=== PATIENT | female | born 1945 | race Caucasian/White ===

== ENCOUNTER 2016-09-06 08:11 | Day surgery (SDC) | payer MEDICARE ==
[2016-09-06] MEDS ORDERED: LACTATED RINGERS 1,000 ML IV ONE (09:05)
[2016-09-06] MEDS ORDERED: MIDAZOLAM 2 MG/2 ML VIAL IVP ONE (10:01)
[2016-09-06] MEDS ORDERED: fentaNYL 100 MCG/2 ML VIAL IVP ONE (10:01)
== END 2016-09-06 08:12 | disposition home or self-care (01) ==
PROC: 0DB28ZX Excision of Middle Esophagus, Via Natural or Artificial Opening Endoscopic, Diagnostic (ICD-10-PCS; principal; 2016-09-06 09:30)
DX: K22.70 Barrett's esophagus without dysplasia (principal); Z98.890 Other specified postprocedural states
CPT/HCPCS: 43239; J7120

== ENCOUNTER 2019-11-22 20:04 | Emergency (ER) | payer MEDICARE ==
[2019-11-22 20:22] VITALS: BP 141/77
--- NOTE | 2019-11-22 20:23 | ED Physician Documentation ---
PD HPI FEVER - Stated complaint Stated Complaint: FEVER - Chief complaint Chief Complaint: Fever - History obtained from History obtained from: Patient - History of Present Illness Timing - onset: Enter time (16:00), Today Timing details: Abrupt onset Associated symptoms: Chills, Dry cough (mild). No: Sore throat Similar symptoms before: Has not had sx before Recently seen: Not recently seen - Additional information Additional information: c/o shaking chills this afternoon, subsequently checked her temperature at it was over 101. She called her PMD's office and was advised to go to the ED due to her h/o pneumonia. She denies dyspnea/shortness of breath. She notes mild, nonproductive cough. She did not take anything for the fever and feels better by the time of this evaluation (compared to when her fever was higher). She had nausea with emesis x 2 and one episode of diarrhea earlier when her fever was high, but denies nausea at this time Review of Systems Constitutional: reports: Fever, Chills, Myalgias Throat: denies: Sore throat Cardiac: reports: Reviewed and negative Respiratory: reports: Cough. denies: Dyspnea, Hemoptysis, Wheezing GI: reports: Nausea (resolved), Vomiting (resolved), Diarrhea (resolved) : denies: Dysuria, Frequency Skin: denies: Rash Neurologic: reports: Headache (mild, generalized). 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, Other HEENT: Tonsil/Adenoidectomy - Present Medications Home Medications: Ambulatory Orders Medication Instructions Recorded Confirmed Calcium Carbonate [Calcium] 1,800 mg PO DAILY 02/01/15 04/05/15 Cholecalciferol (Vitamin D3) 3,000 unit PO DAILY 02/01/15 04/05/15 [Vitamin D] Folic Acid/Mv,Fe,Min [Centrum 1 tab PO DAILY 02/01/15 04/05/15 Multivitamin Tab Chew] Tumeric DAILY 09/06/16 - Allergies Allergies/Adverse Reactions: Allergies Allergy/AdvReac Type Severity Reaction Status Date / Time codeine AdvReac Nausea Verified 09/06/16 09:06 PD ED PE NORMAL - Vitals Vital signs reviewed: Yes - General General: Alert and oriented X 3, No acute distress, Well developed/nourished - HEENT HEENT: Moist mucous membranes - Neck Neck: Supple, no meningeal sign - Cardiac Cardiac: RRR, No murmur - Respiratory Respiratory: No respiratory distress, Clear bilaterally - Abdomen Abdomen: Soft, Non tender - Extremities Extremities: No edema Results - Vitals Vitals: Vital Signs - 24 hr 11/22/19 11/22/19 20:20 22:15 Temperature 38 C H Heart Rate 118 H 95 Respiratory 18 Rate Blood Pressure 141/77 H O2 Saturation 94 95 Oxygen O2 Source Room air - Labs Labs: Laboratory Tests 11/22/19 21:15 Influenza A (Rapid) Negative Influenza B (Rapid) Negative - Rads (name of study) chest xray Radiology: Prelim report reviewed, See rad report PD MEDICAL DECISION MAKING - ED course Complexity details: reviewed results, re-evaluated patient, considered differential, d/w patient Departure - Departure Disposition: 01 Home, Self Care Clinical Impression: Febrile illness Condition: Good Instructions: ED Fever Unconf Cause, ED Fever Control Discharge Date/Time: 11/22/19 22:15
[2019-11-22] MEDS ORDERED: ACETAMINOPHEN 325 MG TABLET PO STA (20:51)
--- NOTE | 2019-11-22 21:44 | XRAY Report ---
Reason: chest pain Procedure Date: 11/22/2019 Accession Number: [id number] / [id number] Procedure: XR - Chest 1 View X-Ray CPT Code: 46386 Final Report FULL RESULT: EXAM: CHEST RADIOGRAPHY EXAM DATE: 11/22/2019 09:33 PM. CLINICAL HISTORY: Chills, shaking, and fever for 2 days with nausea and vomiting. COMPARISON: 10/02/2011. TECHNIQUE: 1 view. FINDINGS: Lungs/Pleura: No focal opacities evident. No pleural effusion. No pneumothorax. Mediastinum: Within exam limitations, the cardiomediastinal contour is normal. Other: None. IMPRESSION: Normal single view chest. RADIA
== END 2019-11-22 22:15 | disposition home or self-care (01) ==
LOC: ED 20:04
DX: R50.9 Fever, unspecified (principal)
CPT/HCPCS: 71045; 81599; 87275; 87276; 99284; A9270

== ENCOUNTER 2022-10-06 06:22 | Day surgery (SDC) | payer MEDICARE ==
[2022-10-06] MEDS ORDERED: LACTATED RINGERS 1,000 ML IV ONE (06:36)
[2022-10-06] MEDS ORDERED: LIDOCAINE MPF 2%-EPI 1:200000 20 ML VIAL ONE (07:10)
[2022-10-06] MEDS ORDERED: BUPIVACAINE 0.25% PF 30 ML VIAL ONE (07:10)
--- NOTE | 2022-10-06 07:16 | ANESTHESIA ---
Pre-Anesthesia VS, & Labs - Diagnosis small cell lung cancer - Procedure port placement Vital Signs: Temp Pulse Resp BP Pulse Ox O2 Flow Rate 36.7 C 99 18 167/79 H 99 2 10/06/22 06:36 10/06/22 06:36 10/06/22 06:36 10/06/22 06:36 10/06/22 06:36 10/06/22 06:36 Height: 5 ft 1 in Weight (kg): 63.6 kg Body Mass Index: 26.4 BMI Classification: Overweight - NPO >8 hours - Is Patient ?: No Home Medications and Allergies Home Medications: Ambulatory Orders Atorvastatin Calcium 40 mg PO DAILY 10/02/22 Omeprazole 20 mg PO DAILY 10/02/22 buPROPion [Wellbutrin Xl] 150 mg PO DAILY 10/02/22 Calcium Carbonate [Calcium] 1,800 mg PO DAILY 02/01/15 Cholecalciferol (Vitamin D3) [Vitamin D] 3,000 unit PO DAILY 02/01/15 Folic Acid/Mv,Fe,Min [Centrum Multivitamin Tab Chew] 1 tab PO DAILY 02/01/15 Atorvastatin Calcium 40 mg PO DAILY 10/02/22 Omeprazole 20 mg PO DAILY 10/02/22 buPROPion [Wellbutrin Xl] 150 mg PO DAILY 10/02/22 Allergies/Adverse Reactions: Allergies Allergy/AdvReac Type Severity Reaction Status Date / Time codeine AdvReac Nausea Verified 10/06/22 07:07 Anes History & Medical History - Anesthetic History Anesthesia Complications: reports: No previous complications - Medical History Cardiovascular: reports: High cholesterol Pulmonary: reports: COPD, Other Gastrointestinal: reports: GERD, Hiatal hernia, Other Urinary: reports: None Musculoskeletal: reports: Osteoporosis Endocrine/Autoimmune: reports: None Skin: reports: None Smoking Status: Former smoker History of Cancer?: Yes - Surgical History General: reports: Hiatal hernia repair, Colonoscopy, EGD Eyes Ears Nose Throat (EENT): reports: Tonsil/Adenoidectomy Gynecologic: reports: Hysterectomy Exam General: Alert, Oriented x3 Dental: WNL Mouth Opening: Greater than 4 Fingerbreadths Neck Mobility: Normal Thyromental Distance: 4-6 cm Respiratory: Lungs clear Cardiovascular: Regular rate Plan Anesthesia Type: Total IV Consent for Procedure(s) Verified and Reviewed: Yes Code Status: Attempt Resuscitation ASA classification: 3-Severe systemic disease Is this case an emergency?: No
[2022-10-06] MEDS ORDERED: fentaNYL 100 MCG/2 ML VIAL ONE (07:17)
--- NOTE | 2022-10-06 07:34 | HISTORY & PHYSICAL EXAMINATION ---
Chief Complaint - Chief Complaint Chief Complaint: lung cancer History of Present Illness - History Obtained From Records Reviewed: yes History obtained from: pt Exam Limitations: none - History of Present Illness HPI Comment/Other: extensive left lung cancer and need for chemotherapy and port History - Past Medical History Cardiovascular: reports: High cholesterol Respiratory: reports: COPD, Other Endocrine/Autoimmune: reports: None GI: reports: GERD, Hiatal hernia, Other : reports: None HEENT: reports: Chronic hearing loss Psych: reports: Anxiety, Claustrophobia Musculoskeletal: reports: Osteoporosis Derm: reports: None MRSA Hx?: No - Past Surgical History General: reports: Hiatal hernia repair, Colonoscopy, 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 HEENT: reports: Tonsil/Adenoidectomy Meds/Allgy - Home Medications Home Medications: Ambulatory Orders Medication Instructions Recorded Confirmed Calcium Carbonate [Calcium] 1,800 mg PO DAILY 02/01/15 10/06/22 Cholecalciferol (Vitamin D3) 3,000 unit PO DAILY 02/01/15 10/06/22 [Vitamin D] Folic Acid/Mv,Fe,Min [Centrum 1 tab PO DAILY 02/01/15 10/06/22 Multivitamin Tab Chew] Atorvastatin Calcium 40 mg PO DAILY 10/02/22 10/06/22 Omeprazole 20 mg PO DAILY 10/02/22 10/06/22 buPROPion [Wellbutrin Xl] 150 mg PO DAILY 10/02/22 10/06/22 - Allergies Allergies/Adverse Reactions: Allergies Allergy/AdvReac Type Severity Reaction Status Date / Time codeine AdvReac Nausea Verified 10/06/22 07:07 Review of Systems - Other Findings Other Findings: 10 pt ros as above otherwise unremarkable Exam - Vital Signs Reviewed Vital Signs: Yes Vital Signs: Vital Signs x48h Temp Pulse Resp BP Pulse Ox O2 Flow Rate 10/06/22 06:36 36.7 C 99 18 167/79 H 99 2 - Physical Exam General Appearance: positive: No acute distress, Alert Eyes Bilateral: positive: PERRL, EOMI ENT: positive: No signs of dehydration, Other Neck: positive: Trachea midline, Other (left supraclavicular and cervical adenopathy present. small hard fixed) Respiratory: positive: No respiratory distress, Other (no breath sound on the left. clear on the right) Abdomen: positive: Non-tender, No distention Neurologic/Psychiatric: positive: Oriented x3 Conclusion/Plan - Problem List (1) Lung cancer Conclusion/Plan: plan chemotherapy port. parq held and consent obtained
[2022-10-06] MEDS ORDERED: ONDANSETRON 4 MG/2 ML VIAL ONE (08:49)
[2022-10-06] MEDS ORDERED: PROPOFOL 500 MG/50 ML 500 MG/50 ML VIAL ONE (08:53)
[2022-10-06] MEDS ORDERED: ceFAZolin 1 GM VIAL ONE (08:57)
[2022-10-06] MEDS ORDERED: BUPIVACAINE 0.25% PF 30 ML VIAL SUBQ ONE ×2 (09:09)
[2022-10-06] MEDS ORDERED: LIDOCAINE MPF 2%-EPI 1:200000 20 ML VIAL SUBQ ONE ×2 (09:10)
--- NOTE | 2022-10-06 09:32 | XRAY Report ---
PROCEDURE: OR Port-A-Cath INDICATIONS: port placement CONTRAST: None FLUORO TIME: 5 seconds TECHNIQUE: Real time fluoroscopy was performed of the thorax. COMPARISON: None. FINDINGS: Single intraoperative fluoroscopic image from port catheter placement. IMPRESSION: Intraprocedural fluoroscopy was provided for guidance and anatomic localization. Please see the proc edure report for further details. Reviewed by: Misbah Pat MD on 10/06/2022 9:31 AM PST Approved by: Misbah Pat MD on 10/06/2022 9:31 AM PST Station ID: [id number]
[2022-10-06] MEDS ORDERED: LACTATED RINGERS 75 ML IV ONE (09:40)
[2022-10-06] MEDS ORDERED: HYDROcod/ACETAM 5/325 MG TABLET PO PRN (09:42)
--- NOTE | 2022-10-06 09:47 | OPERATIVE REPORT ---
Operative Report - General Procedure Date: 10/06/22 Planned Procedure: left subclavian power port placement Pre-Op Diagnosis: left lung cancer Procedure Performed: left subclavian power port placement fluoroscopic guidance Post Op Diagnosis: left lung cancer - Procedure Note Primary Surgeon: lilliana thurman Anesthesia Technique: Local, MAC Pathology: none Estimated Blood Loss (mL): 1 Indications: need for chemotherapy Findings: tip at junction of svc and atrium good flush and flow Complications: none - Other Other Information/Narrative: The patient was properly identified brought to the operating room and placed in supine position. Monitored anesthesia care was given as well as IV sedation. A towel roll was placed under the upper back. The patient was prepped and draped in a sterile fashion and given preoperative antibiotics. Local anesthetic was given. The left subclavian vein was easily accessed first pass with a needle. Guide wire placed and position confirmed. A subcutaneous pocket on the left upper chest was created measuring approximately 2-1/2 cm. Portacatheter tubing was then placed subcutaneous up to the venous access point. The portacatheter tubing was then easily placed with the use of a dilator peel-away sheath. The tubing was aspirated and flushed with saline. Under fluoroscopic guidance the tubing was pulled back to the junction of the atrium and the superior vena cava. The portacatheter aspirated and flushed easily assuring good position. The portacatheter was then cut to size and further assembled. The port was secured to subcutaneous tissue with 2 interrupted 4-0 Prolene sutures. The port again was aspirated and flushed now with heparin. Buried interrupted subdermal 3-0 Vicryl sutures were then placed. Skin was closed with buried interrupted and running 4-0 Monocryl subcuticular suture. Dressing was applied. The patient tolerated the procedure well was awakened and brought to recovery in good condition.
[2022-10-06 09:56] VITALS: BP 140/74
--- NOTE | 2022-10-06 10:20 | ANESTHESIA POST OP EVALUATION ---
Anesthesia Post Eval - Post Anesthesia Eval Vitals: Last Vital Signs Temp 36.3 C L 10/06/22 09:55 Pulse 88 10/06/22 09:55 Resp 20 10/06/22 09:55 BP 140/74 H 10/06/22 09:55 Pulse Ox 99 10/06/22 09:55 O2 Flow Rate 2 10/06/22 06:36 CV Function Including HR & BP: Stable Pain Control: Satisfactory Nausea & Vomiting: Negative Mental Status: Baseline Respiratory Status: Airway Patent Hydration Status: Satisfactory Anesthesia Complications: None
== END 2022-10-06 06:23 | disposition home or self-care (01) ==
LOC: SDS 06:22
PROVIDERS: ATTEND Surgery
DX: C34.90 Malignant neoplasm of unspecified part of unspecified bronchus or lung (principal); J44.9 Chronic obstructive pulmonary disease, unspecified; Z87.891 Personal history of nicotine dependence
CPT/HCPCS: 36561; C1788; J7120

== ENCOUNTER 2023-05-20 18:46 | Outpatient (CLI) | payer MEDICARE | END 2023-05-20 18:47 | disposition critical access hospital (66) | LOC: EMS 18:46 | DX: U07.1 COVID-19 (principal); R06.02 Shortness of breath | CPT/HCPCS: A0425; A0427 ==

== ENCOUNTER 2023-05-20 19:20 | Inpatient (IN) | payer MEDICARE ==
[2023-05-20 20:14] LABS: BASOPHILS % (AUTO) 0.3 %; EOSINOPHILS # (AUTO) 0.1 10^3/uL (0.0-0.7); HCT - HEMATOCRIT 20.2 % (37.0-47.0); LYMPHOCYTES # (AUTO) 0.2 10^3/uL (1.5-3.5); MEAN CORPUSCULAR HEMOGLOBIN 30.7 pg (27.0-31.0); MEAN CORPUSCULAR HGB CONC 31.2 g/dL (32.0-36.0); MEAN CORPUSCULAR VOLUME 98.5 fL (81.0-99.0); MEAN PLATELET VOLUME 8.1 fL (7.9-10.8); MONOCYTES # (AUTO) 0.3 10^3/uL (0.0-1.0); MONOCYTES % (AUTO) 9.6 %; NEUTROPHILS # (AUTO) 2.4 10^3/uL (1.5-6.6); NEUTROPHILS % (AUTO) 79.8 %; PLT - PLATELET COUNT 109 10^3/uL (130-450); RED BLOOD COUNT 2.05 10^6/uL (4.20-5.40)
[2023-05-20 20:17] LABS: HGB - HEMOGLOBIN 6.3 g/dL (12.0-16.0)
[2023-05-20 20:31] LABS: SLIDE REVIEW? Indicated
[2023-05-20 20:32] LABS: PLATELET ESTIMATE, MANUAL DECREASED (<130,000) (NORMAL); PLATELET MORPHOLOGY NORMAL APPEARANCE (NORMAL); RBC MORPHOLOGY (MULTIPLE) NORMAL APPEARANCE (NORMAL)
--- NOTE | 2023-05-20 20:41 | XRAY Report ---
PROCEDURE: Chest 1 View X-Ray INDICATIONS: SOA/COVID + TECHNIQUE: One view of the chest was acquired. COMPARISON: CT chest dated 04/24/2023 and chest radiograph dated 11/22/2019 FINDINGS: Surgical changes and devices: Left port device is in place with the distal tip projecting near the c avoatrial junction. Lungs and pleura: Diffuse interstitial prominence. Patchy ill-defined opacities of the left mid and upper lung zone. No focal consolidation. There is an right medial lung base density with smooth, curv ilinear margin which may represent contours of the Bochdalek hernia seen on comparison CT. Focal mass /consolidation not excluded. Mediastinum: Cardiomediastinal contours are stable. Bones and chest wall: No suspicious bony lesions. Overlying soft tissues appear unremarkable. IMPRESSION: Diffuse interstitial prominence and patchy airspace opacities of the left mid and upper lung zones. F indings likely represent an infectious or inflammatory process given reported history of Covid infect ion. No focal consolidation. Recommend follow-up chest radiograph 4-6 weeks after treatment to docume nt resolution of findings and/or return to baseline exam. Right medial lung base opacity with smooth curvilinear margin likely representing summation artifact of Bochdalek hernia seen on comparison CT. Attention on follow-up imaging recommended. Reviewed by: Miki Gilmore MD on 05/20/2023 8:40 PM PDT Approved by: Miki Gilmore MD on 05/20/2023 8:40 PM PDT Station ID: [id number]
[2023-05-20 21:10] LABS: BASOPHILS % (AUTO) 0.6 %; EOSINOPHILS # (AUTO) 0.1 10^3/uL (0.0-0.7); EOSINOPHILS % (AUTO) 1.3 %; HCT - HEMATOCRIT 34.6 % (37.0-47.0); HGB - HEMOGLOBIN 11.5 g/dL (12.0-16.0); LYMPHOCYTES # (AUTO) 0.4 10^3/uL (1.5-3.5); LYMPHOCYTES % (AUTO) 7.1 %; MEAN CORPUSCULAR HEMOGLOBIN 31.1 pg (27.0-31.0); MEAN CORPUSCULAR HGB CONC 33.2 g/dL (32.0-36.0); MEAN CORPUSCULAR VOLUME 93.5 fL (81.0-99.0); MEAN PLATELET VOLUME 8.1 fL (7.9-10.8); MONOCYTES # (AUTO) 0.5 10^3/uL (0.0-1.0); MONOCYTES % (AUTO) 8.9 %; NEUTROPHILS # (AUTO) 4.4 10^3/uL (1.5-6.6); NEUTROPHILS % (AUTO) 81.9 %; PLT - PLATELET COUNT 199 10^3/uL (130-450); RED CELL DISTRIBUTION WIDTH 12.7 % (12.0-15.0); WHITE BLOOD COUNT 5.4 x10^3/uL (4.8-10.8)
[2023-05-20 21:19] LABS: ALBUMIN 3.2 g/dL (3.2-5.5); ALBUMIN/GLOBULIN RATIO 1.1 (1.0-2.2); BILIRUBIN,TOTAL 0.6 mg/dL (0.2-1.0); CALCIUM 8.8 mg/dL (8.5-10.3); CREATININE 0.9 mg/dL (0.6-1.3); POTASSIUM 3.2 mmol/L (3.5-4.5); TOTAL PROTEIN 6.2 g/dL (6.4-8.9)
[2023-05-20] MEDS ORDERED: SODIUM CHLORIDE 0.9% 500 ML IV STA (21:26)
[2023-05-20] MEDS ORDERED: POTASSIUM BICARB 25 MEQ TABLET PO STA (21:26)
[2023-05-20] MEDS ORDERED: AZITHROMYCIN INJ 500 MG in SODIUM CHLORIDE 0.9% 250 ML IV STA (22:08)
--- NOTE | 2023-05-20 22:24 | ED Physician Documentation ---
PD HPI DYSPNEA - Stated complaint Stated Complaint: SOA/C+ - Chief complaint Chief Complaint: Resp - History obtained from History obtained from: Patient - Additional information Additional information: Patient is a 78-year-old female with a history of small cell lung cancer presenting for evaluation of worsening shortness of air for the past few hours. She used a home inhaler but this did not help her. She recently has completed a course of prednisone. She was diagnosed with COVID 19 3 days ago and is on Paxlovid. She reports that her shortness of air has been ongoing for the past 5 weeks and she has seen her oncologist, Dr. Andres. He did a CT scan to see if her cancer was recurrent and found findings ( toxicity. Significant groundglass opacities and subcentimeter pulmonary nodularity) that were concerning for immuno therapy toxicity With plans to hold maintenance atezolizumab. For the treatment of her immunotherapy related pneumonitis he started her on a course of prednisone. She completed 2 weeks of prednisone on the .She reports that the prednisone made her feel manic and did not like how she felt with it. This evening she also noted that her oxygen saturations were low in the 80s. When EMS arrived they noted that her O2 sats were 88% on room air and administered a DuoNeb treatment. Patient reports feeling better at this time. Review of Systems Constitutional: denies: Fever Cardiac: denies: Chest pain / pressure Respiratory: reports: Dyspnea, Cough GI: denies: Abdominal Pain, Vomiting Neurologic: reports: Generalized weakness. 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 HEENT: Tonsil/Adenoidectomy - Present Medications Home Medications: Ambulatory Orders Medication Instructions Recorded Confirmed Calcium Carbonate [Calcium] 1,800 mg PO DAILY 02/01/15 05/20/23 Cholecalciferol (Vitamin D3) 3,000 unit PO DAILY 02/01/15 05/20/23 [Vitamin D] Folic Acid/Mv,Fe,Min [Centrum 1 tab PO DAILY 02/01/15 05/20/23 Multivitamin Tab Chew] Atorvastatin Calcium 40 mg PO DAILY 10/02/22 05/20/23 Omeprazole 20 mg PO DAILY 10/02/22 05/20/23 HYDROcod/ACETAM 5/325 [[place] 5/325] 1 each PO Q6H PRN #10 tablet 10/06/22 05/20/23 Escitalopram [Lexapro] 10 mg PO DAILY 04/25/23 05/20/23 Zolpidem Tartrate [Edluar] 5 mg SL UD 04/25/23 05/20/23 - Allergies Allergies/Adverse Reactions: Allergies Allergy/AdvReac Type Severity Reaction Status Date / Time codeine AdvReac Nausea Verified 05/20/23 19:34 - Social History Does the pt smoke?: No Smoking Status: Never smoker Does the pt drink ETOH?: No Does the pt have substance abuse?: No - Immunizations Immunizations are current?: Yes - POLST Patient has POLST: No PD ED PE NORMAL - General General: Alert and oriented X 3, No acute distress, Well developed/nourished - HEENT HEENT: Atraumatic, Moist mucous membranes - Neck Neck: Supple, no meningeal sign - Cardiac Cardiac: RRR, No murmur, Other (Port to the left chest, no overlying erythema or swelling) - Respiratory Respiratory: No respiratory distress, Other (Coarse breath sounds, no wheezes) - Abdomen Abdomen: Soft, Non tender, Non distended - Rectal Rectal: Other (Chaperoned by Princess, brown-colored stool, no tenderness) - Derm Derm: Warm and dry - Extremities Extremities: No calf tenderness / cord - Neuro Neuro: Alert and oriented X 3, No motor deficit, Normal speech Results - Vitals Vitals: Vital Signs - 24 hr 05/20/23 05/20/23 05/20/23 19:20 19:43 20:10 Temperature 36.7 C Heart Rate 103 H 104 H 91 Respiratory 23 26 H 19 Rate Blood Pressure 152/62 H 146/73 H 154/67 H O2 Saturation 89 L 98 97 If not protocol 4 2 : Oxygen Flow, liters/minute 05/20/23 05/20/23 05/20/23 20:51 22:08 22:23 Temperature Heart Rate 90 85 87 Respiratory 26 H 23 18 Rate Blood Pressure 145/57 H 125/62 125/63 O2 Saturation 94 91 L 87 L If not protocol 2 : Oxygen Flow, liters/minute 05/20/23 05/20/23 22:27 22:40 Temperature 36.6 C Heart Rate 84 91 Respiratory 23 22 Rate Blood Pressure 143/81 H O2 Saturation 99 94 If not protocol 2 2 : Oxygen Flow, liters/minute Oxygen O2 Source Nasal cannula Oxygen Flow Rate 4 - EKG (time done) 1942 EKG releavant findings:: EKG personally interpreted by author of this note. Relevant findings are: Rate 93, normal sinus rhythm, no STEMI - Labs Labs: Microbiology 05/20/23 20:41 Occult Blood - Final Stool Laboratory Tests 05/20/23 05/20/23 05/20/23 20:01 20:01 20:01 WBC 3.0 L RBC 2.05 L Hgb 6.3 L* Hct 20.2 L MCV 98.5 MCH 30.7 MCHC 31.2 L RDW 13.0 Plt Count 109 L MPV 8.1 Neut # (Auto) 2.4 Lymph # (Auto) 0.2 L Pepin # (Auto) 0.3 Eos # (Auto) 0.1 Baso # (Auto) 0.0 Absolute Nucleated RBC 0.00 Nucleated RBC % 0.0 Manual Slide Review Indicated Platelet Estimate DECREASED (<130,000) Platelet Morphology NORMAL APPEARANCE RBC Morph Micro Appear NORMAL APPEARANCE Sodium Cancelled Potassium Cancelled Chloride Cancelled Carbon Dioxide Cancelled Anion Gap Cancelled BUN Cancelled Creatinine Cancelled Estimated GFR (MDRD) Cancelled Glucose Cancelled Lactic Acid < 0.2 L Calcium Cancelled Total Bilirubin Cancelled AST Cancelled ALT Cancelled Alkaline Phosphatase Cancelled B-Natriuretic Peptide Total Protein Cancelled Albumin Cancelled Globulin Cancelled Albumin/Globulin Ratio Cancelled Blood Type Antibody Screen Crossmatch IS Only 05/20/23 05/20/23 05/20/23 20:01 20:29 21:01 WBC RBC Hgb Hct MCV MCH MCHC RDW Plt Count MPV Neut # (Auto) Lymph # (Auto) Pepin # (Auto) Eos # (Auto) Baso # (Auto) Absolute Nucleated RBC Nucleated RBC % Manual Slide Review Platelet Estimate Platelet Morphology RBC Morph Micro Appear Sodium 126 L Potassium 3.2 L Chloride 90 L Carbon Dioxide 26 Anion Gap 10.0 BUN 16 Creatinine 0.9 Estimated GFR (MDRD) 60 L Glucose 106 H Lactic Acid Calcium 8.8 Total Bilirubin 0.6 AST 25 ALT 23 Alkaline Phosphatase 56 B-Natriuretic Peptide 9 Total Protein 6.2 L Albumin 3.2 Globulin 3.0 Albumin/Globulin Ratio 1.1 Blood Type A POSITIVE Antibody Screen NEGATIVE Crossmatch IS Only See Detail 05/20/23 21:01 WBC 5.4 RBC 3.70 L Hgb 11.5 L Hct 34.6 L MCV 93.5 MCH 31.1 H MCHC 33.2 RDW 12.7 Plt Count 199 MPV 8.1 Neut # (Auto) 4.4 Lymph # (Auto) 0.4 L Pepin # (Auto) 0.5 Eos # (Auto) 0.1 Baso # (Auto) 0.0 Absolute Nucleated RBC 0.00 Nucleated RBC % 0.0 Manual Slide Review Platelet Estimate Platelet Morphology RBC Morph Micro Appear Sodium Potassium Chloride Carbon Dioxide Anion Gap BUN Creatinine Estimated GFR (MDRD) Glucose Lactic Acid Calcium Total Bilirubin AST ALT Alkaline Phosphatase B-Natriuretic Peptide Total Protein Albumin Globulin Albumin/Globulin Ratio Blood Type Antibody Screen Crossmatch IS Only PD Medical Decision Making - ED course Complexity details: reviewed results, re-evaluated patient, d/w patient ED course: Patient is a 78-year-old female presenting for evaluation of worsening shortness of air. Patient is requiring supplemental oxygen. Feeling better after neb treatment from EMS. Course breath sounds on exam. Afebrile. Conversant. EKG is nonischemic.No symptoms to suggest ACS.CBC, chemistries, lactic, blood cultures and chest x-ray were obtained and reviewed. She has recently tested positive for COVID-19 and has started a course of Paxlovid. Initial labs showed a hemoglobin of 6.5 which was concerning as prior labs from about a month ago showed a hemoglobin of 11. I did perform a rectal exam which was guaiac negative and normal colored stool and she denies hematochezia or melena. Lab then notified us that her chemistries seem to be off. Therefore we repeated both the CBC and chemistries. Repeat hemoglobin appears to be accurate and is not significantly changed from prior labs. She does have a new hyponatremia of 126. She reports drinking up a lot of water today to stay hydrated and has not been eating as much. Chest x-ray shows opacities. Unclear whether this is related to COVID or bacterial infection. Given that she may be immunocompromised from cancer treatments I did start her on IV antibiotics. Patient is unable to be weaned from her oxygen. Therefore she does require admission. Discussed with admitting hospitalist. Departure - Departure Disposition: 66 [facility] DC/Xfer Clinical Impression: COVID-19, Acute hypoxic respiratory failure, CAP (community acquired pneumonia), Hyponatremia Condition: Fair
[2023-05-20] MEDS ORDERED: cefTRIAXone 1 GM in SODIUM CHLORIDE 0.9% MINIBAG 100 ML IV STA (22:45)
--- NOTE | 2023-05-20 23:10 | HISTORY & PHYSICAL EXAMINATION ---
Chief Complaint - Chief Complaint Chief Complaint: Shortness of breath History of Present Illness - Admitted From Admitted From:: ER - History Obtained From Records Reviewed: Yes History obtained from: Patient, staff, chart Exam Limitations: Virtual Exam - History of Present Illness HPI Comment/Other: H&P was conducted via video remotely, using Access Cart. [place] in [place] Physician [place] in [place]. No one is at bedside. 78 yo F with PMH of COPD, extensive SCLC dx'd 08/2022 with maintenance Atezolizumab since 02/14/2023-On hold since 04/25/2023 due to pneumonitis, HLD, GERD, Anxiety presented to the ER for c/o 1 day h/o increased Shortness of breath. Pt noticed increased SOB about 6 weeks ago, went to see her Oncologist, CT chest was done, which showed Pneumonitis; pt was put on a course of Prednisone (40 mg PO qd x 7 days, then 20 mg PO QD x 7 days). Pt says taking the steroids made her feel manic/happy. Her symptoms improved. While she was on steroids, she went on a cruise to [place] out of [place]. On the cruise, after her last day of steroids, she had a bad day with fatigue. She called her Palliative care RN and was prescribed a tapering dose of steroids and she felt better. Then, about 4 days into the cruise/8 days ago, she began to have increased Shortness of breath with activity, cough, no sputum, +chest congestion, fatigue, nausea, subjective F/C. Her roommate also felt ill and went to see a physician and tested + for both Influenza and COVID-19. Pt then got tested 3 days ago and her COVID-19 was +; she was negative for Influenza. She was started on Paxlovid 3 days ago. Today, her symptoms worsened. She had worse Shortness of breath. She checked her SpO2 and it was in the 80s, which did not improved with home inhaler, so she called EMS. Pt denies abdo pain, dysuria. Pt ate well on the cruise, but has not eaten well x 2 days. Temp at home today: 100.8F. +vomiting at home a couple of times: non-bloody. EMS reported SpO2 88% and placed pt on O2 and gave her Duonebs. In the ER, BP 152/62, HR 103, SpO2 87% RA-97% on 2L NC O2 Note: 1st set of labs were error results Per 2nd set of labs: Hgb 11.5, Na 126, K 3.2 CXR: Diffuse patchy airspace opacities L mid and upper lung, RML opacity EKG: NSR at 93 bpm, no STTw changes Pt was given Rocephin/Azithromycin, Duonebs, O2, and KCl 25 meQ in the ER. History - Past Medical History Cardiovascular: reports: High cholesterol Respiratory: reports: COPD, Other Endocrine/Autoimmune: reports: None GI: reports: GERD, Hiatal hernia, Other : reports: None HEENT: reports: Chronic hearing loss Psych: reports: Anxiety, Claustrophobia Musculoskeletal: reports: Osteoporosis Derm: reports: None MRSA Hx?: No Other Past Medical History: Lung CA: Covid19+ recent - Past Surgical History General: reports: Hiatal hernia repair, Colonoscopy, EGD /GLUER AND SLICER HAND: reports: Hysterectomy HEENT: reports: Tonsil/Adenoidectomy - POLST Patient has POLST: No Meds/Allgy - Home Medications Home Medications: Ambulatory Orders Medication Instructions Recorded Confirmed Calcium Carbonate [Calcium] 1,800 mg PO DAILY 02/01/15 05/20/23 Cholecalciferol (Vitamin D3) 3,000 unit PO DAILY 02/01/15 05/20/23 [Vitamin D] Folic Acid/Mv,Fe,Min [Centrum 1 tab PO DAILY 02/01/15 05/20/23 Multivitamin Tab Chew] Atorvastatin Calcium 40 mg PO DAILY 10/02/22 05/20/23 Omeprazole 20 mg PO DAILY 10/02/22 05/20/23 HYDROcod/ACETAM 5/325 [Hendley 5/325] 1 each PO Q6H PRN #10 tablet 10/06/22 05/20/23 Escitalopram [Lexapro] 10 mg PO DAILY 04/25/23 05/20/23 Zolpidem Tartrate [Edluar] 5 mg SL UD 04/25/23 05/20/23 - Allergies Allergies/Adverse Reactions: Allergies Allergy/AdvReac Type Severity Reaction Status Date / Time codeine AdvReac Nausea Verified 05/20/23 19:34 Review of Systems - All Other Systems All Other Systems: reports: Reviewed and negative Exam - Vital Signs Reviewed Vital Signs: Yes Vital Signs: Vital Signs x48h Temp Pulse Resp BP Pulse Ox O2 Flow Rate 05/20/23 22:40 36.6 C 91 22 143/81 H 94 2 05/20/23 22:27 84 23 99 2 05/20/23 22:23 87 18 125/63 87 L 05/20/23 22:08 85 23 125/62 91 L 05/20/23 20:51 90 26 H 145/57 H 94 2 05/20/23 20:10 91 19 154/67 H 97 2 05/20/23 19:43 104 H 26 H 146/73 H 98 4 05/20/23 19:20 36.7 C 103 H 23 152/62 H 89 L - Physical Exam General Appearance: positive: No acute distress ENT: positive: Dry mucous membranes Neck: positive: Other Respiratory: positive: Other (Access cart stethoscope not working; per ER Provider: Diffuse coarse BS B/L, Port to the left chest, no overlying erythema or swelling) Cardiovascular: positive: Other (Access cart stethoscope not working; per ER Provider: RR, Tachy, no murmurs) Abdomen: positive: Other (per ER Provider: non-distended, NT, Soft) Extremities: positive: Full ROM Neurologic/Psychiatric: positive: Oriented x3, Other (Normal speech) Conclusion/Plan - Problem List (1) Pneumonia Conclusion/Plan: Pneumonia COVID-19+ Acute Respiratory Failure with Hypoxia COPD Shortness of breath Fever -SpO2 87% RA-97% on 2L NC O2 -CXR: Diffuse patchy airspace opacities L mid and upper lung, RML opacity -Pt was given Rocephin/Azithromycin, Duonebs, O2 in the ER. -continue O2 support -continue Rocephin/Azithromycin -check Procalcitonin; if neg, can stop antibiotics -add Dexamethasone 6 mg IV x 10 days (obtained consent from pt) -continue home medications: Paxlovid x 2 more days -consider Remdesivir, if available -Duonebs PRN Nausea/Vomiting Decreased PO intake Hyponatremia Hypokalemia -Na 126, K 3.2 -Pt was given KCl 25 meQ in the ER. -supplement K PRN -IVF -clear liquid diet; advance as tolerated -anti-emetics PRN Extensive SCLC dx'd 08/2022 with maintenance Atezolizumab since 02/14/2023-On hold since 04/25/2023 due to pneumonitis Anemia -Note: 1st set of labs were error results -Per 2nd set of labs: Hgb 11.5 -mgmt per Oncology, outpatient HLD -continue home medications: statin GERD -continue home medications: PPI Anxiety -continue home medications: Lexapro VTE Prophylaxis: Lovenox Code Status: D/W pt; she is DNR/DNI ~Alycia Brooks MD Hospitalist - Lab Results Lab results reviewed: Yes Fish Bones: 05/20/23 21:01 05/20/23 21:01
[2023-05-20] MEDS ORDERED: cefTRIAXone 1 GM VIAL ONE (23:23)
[2023-05-20] MEDS ORDERED: ACETAMINOPHEN 325 MG TABLET PO PRN (23:47)
[2023-05-20] MEDS ORDERED: ONDANSETRON ODT 4 MG TABLET TL PRN (23:47)
[2023-05-20] MEDS ORDERED: IPRATROPIUM/ALBUTEROL 3 ML NEB INH PRN (23:47)
[2023-05-20] MEDS ORDERED: SODIUM CHLORIDE FLUSH 0.9% 10 ML SYRINGE IVP PRN (23:47)
[2023-05-20] MEDS ORDERED: ONDANSETRON 4 MG/2 ML VIAL IVP PRN (23:47)
[2023-05-20] MEDS ORDERED: HYDROcod/ACETAM 5/325 MG TABLET PO PRN (23:53)
[2023-05-21] MEDS ORDERED: NIRMATRELVIR/RITONAVIR PREPACK PO STA (00:18)
[2023-05-21] MEDS: SODIUM CHLORIDE 0.9% 1,000 ML IV SCH ×2 (00:21→10:23)
[2023-05-21] MEDS: SODIUM CHLORIDE FLUSH 0.9% 10 ML SYRINGE IVP SCH ×4 (01:49→23:29)
[2023-05-21] MEDS: PROCHLORPERAZINE 10 MG/2 ML VIAL IVP PRN ×2 (01:50→23:28)
[2023-05-21] MEDS: ESCITALOPRAM 10 MG TABLET PO SCH ×2 (01:50→21:54)
[2023-05-21 07:59] LABS: BASOPHILS % (AUTO) 0.4 %; EOSINOPHILS # (AUTO) 0.2 10^3/uL (0.0-0.7); EOSINOPHILS % (AUTO) 3.1 %; HCT - HEMATOCRIT 30.8 % (37.0-47.0); HGB - HEMOGLOBIN 10.2 g/dL (12.0-16.0); LYMPHOCYTES # (AUTO) 0.2 10^3/uL (1.5-3.5); LYMPHOCYTES % (AUTO) 3.1 %; MEAN CORPUSCULAR HGB CONC 33.1 g/dL (32.0-36.0); MEAN CORPUSCULAR VOLUME 93.6 fL (81.0-99.0); MEAN PLATELET VOLUME 8.4 fL (7.9-10.8); MONOCYTES # (AUTO) 0.4 10^3/uL (0.0-1.0); MONOCYTES % (AUTO) 7.6 %; NEUTROPHILS # (AUTO) 4.2 10^3/uL (1.5-6.6); NEUTROPHILS % (AUTO) 85.6 %; PLT - PLATELET COUNT 184 10^3/uL (130-450); RED BLOOD COUNT 3.29 10^6/uL (4.20-5.40); RED CELL DISTRIBUTION WIDTH 13.1 % (12.0-15.0); WHITE BLOOD COUNT 4.9 x10^3/uL (4.8-10.8)
[2023-05-21 08:13] LABS: CALCIUM 8.2 mg/dL (8.5-10.3); CREATININE 0.6 mg/dL (0.6-1.3); POTASSIUM 3.8 mmol/L (3.5-4.5)
[2023-05-21] MEDS: PANTOPRAZOLE 40 MG TABLET PO SCH (08:14)
[2023-05-21] MEDS: CHOLECALCIFEROL 25 MCG TABLET PO SCH (08:14)
[2023-05-21] MEDS: SACCHAROMYCES BOULARDII 250 MG CAPSULE PO SCH ×2 (08:15→17:43)
[2023-05-21] MEDS: MULTIVITAMIN W/MINERALS TABLET PO SCH (08:15)
[2023-05-21] MEDS: ATORVASTATIN 40 MG TABLET PO SCH (08:15)
[2023-05-21] MEDS: CALCIUM CARB (OYSTER SHELL) 500 MG TABLET PO SCH (08:15)
[2023-05-21] MEDS: ENOXAPARIN 40 MG/0.4 ML SYRINGE SUBQ SCH (08:15)
--- NOTE | 2023-05-21 08:56 | PROVIDER PROGRESS NOTE ---
Assessment/Plan - Problem List (1) Acute hypoxic respiratory failure Assessment/Plan: Secondary to pneumonia, COVID-19 viral pneumonia versus superimposed bacterial pneumonia In the setting of COPD patient, with small cell lung cancer Poor immune system Continue oxygen treatment, goal of SaO2 88 to 92% Continue with ceftriaxone and azithromycin, 3 days treatment is planned Finished the last dose of Paxlovid today Continue Decadron, decrease dose to 4 mg daily to complete in 2 days Patient can have labile emotion from high-dose steroid (2) Hyponatremia Assessment/Plan: Due to poor oral intake, and nausea vomiting at presentation Sodium has improved, Sodium 130 1 in the morning, hypokalemia resolved after treatment Patient is improved, tolerated with clear liquid diet, Advance diet. (3) Lung cancer Assessment/Plan: Extensive small cell lung cancer diagnosed in August,. Was treated with atezolizumab, on hold since . Due to pneumonitis Patient follows Dr. Andres as outpatient, who comes to the [place] on . (4) Anxiety Assessment/Plan: Patient can be emotional labile. Continue home Lexapro Give Xanax as needed - Current Meds Current Meds: Current Medications Generic Name Dose Route Start Last Admin Trade Name Freq PRN Reason Stop Dose Admin Acetaminophen 650 mg 05/20/23 23:47 05/21/23 06:20 Acetaminophen 325 Mg Tablet PO 650 mg Q4HR PRN Administration Pain 1 to 4, or Fever Atorvastatin Calcium 40 mg 05/21/23 09:00 05/21/23 08:15 Atorvastatin 40 Mg Tablet PO 40 mg DAILY LAKISHA Administration Calcium Carbonate/Glycine 1,500 mg 05/21/23 09:00 05/21/23 08:15 Calcium Carb (Oyster Shell) 500 Mg Tablet PO 1,500 mg DAILY LAKISHA Administration Cholecalciferol 75 mcg 05/21/23 09:00 05/21/23 08:14 Cholecalciferol 25 Mcg Tablet PO 75 mcg DAILY LAKISHA Administration Dexamethasone Sodium Phosphate 6 mg 05/21/23 09:00 05/21/23 08:14 Dexamethasone 10 Mg/Ml Vial IVP 6 mg DAILY LAKISHA Administration Enoxaparin Sodium 40 mg 05/21/23 09:00 05/21/23 08:15 Enoxaparin 40 Mg/0.4 Ml Syringe SUBQ 40 mg DAILY LAKISHA Administration Escitalopram Oxalate 10 mg 05/21/23 01:30 05/21/23 01:50 Escitalopram 10 Mg Tablet PO 10 mg QPM LAKISHA Administration Sodium Chloride 1,000 mls @ 100 mls/hr 05/20/23 23:45 05/21/23 00:21 Normal Saline 0.9% IV 100 mls/hr .Q10H LAKISHA Administration Multivitamins/Minerals 1 tab 05/21/23 09:00 05/21/23 08:15 Multivitamin W/Minerals Tablet PO 1 tab DAILY LAKISHA Administration Pantoprazole Sodium 40 mg 05/21/23 09:00 05/21/23 08:14 Pantoprazole 40 Mg Tablet PO 40 mg DAILY LAKISHA Administration Prochlorperazine Edisylate 10 mg 05/21/23 01:18 05/21/23 01:50 Prochlorperazine 10 Mg/2 Ml Vial IVP 10 mg Q6HR PRN Administration Nausea / Vomiting Saccharomyces Boulardii 250 mg 05/21/23 08:00 05/21/23 08:15 Saccharomyces Boulardii 250 Mg Capsule PO 250 mg BIDWM LAKISHA Administration Sodium Chloride 10 ml 05/21/23 01:00 05/21/23 08:15 Sodium Chloride Flush 0.9% 10 Ml Syringe IVP 10 ml 0100,0900,1700 LAKISHA Administration - Lab Result Lab results reviewed: Yes Fish Bone Diagrams: 05/21/23 07:38 05/21/23 07:38 - EKG Results EKG Interpreted Independently: Yes EKG Findings: II,III,aVF ST changes however not meet the criteria for ST elevation. Likely patient is having baseline ischemia of the myocardium cells - Diagnostic Imaging Results Diagnostic Imaging Results: Final report reviewed - Additional Planning Condition/Complexity: Improved Plan Discussed with:: Patient Time Spent: 15-30 minutes Subjective - Subjective Patient Reports: Feeling Better (Patient is very upset with the care she received today in the afternoon. She states that she was in the bathroom in need of help, however being left alone for long peers of time. Also she had some bleeding from her Mediport. She is very unhappy, in tears. She states" do not say that steroid caus) Objective Vital Signs: Vital Signs - 24 hr 05/20/23 05/20/23 05/20/23 19:20 19:43 20:10 Temperature 36.7 C Heart Rate 103 H 104 H 91 Heart Rate [ Monitoring electrodes] Respiratory 23 26 H 19 Rate Blood Pressure 152/62 H 146/73 H 154/67 H Blood Pressure [Right Brachial artery] O2 Saturation 89 L 98 97 If not protocol 4 2 : Oxygen Flow, liters/minute 05/20/23 05/20/23 05/20/23 20:51 22:08 22:23 Temperature Heart Rate 90 85 87 Heart Rate [ Monitoring electrodes] Respiratory 26 H 23 18 Rate Blood Pressure 145/57 H 125/62 125/63 Blood Pressure [Right Brachial artery] O2 Saturation 94 91 L 87 L If not protocol 2 : Oxygen Flow, liters/minute 05/20/23 05/20/23 05/21/23 22:27 22:40 00:11 Temperature 36.6 C 36.9 C Heart Rate 84 91 83 Heart Rate [ Monitoring electrodes] Respiratory 23 22 26 H Rate Blood Pressure 143/81 H 130/57 L Blood Pressure [Right Brachial artery] O2 Saturation 99 94 If not protocol 2 2 2 : Oxygen Flow, liters/minute 05/21/23 05/21/23 05/21/23 00:53 01:08 03:43 Temperature 36.5 C 36.4 C L Heart Rate Heart Rate [ 88 99 Monitoring electrodes] Respiratory 19 20 Rate Blood Pressure Blood Pressure 152/60 H 183/76 H [Right Brachial artery] O2 Saturation 96 95 If not protocol 2 2 3 : Oxygen Flow, liters/minute 05/21/23 05/21/23 05/21/23 03:48 07:48 08:41 Temperature 36.7 C Heart Rate Heart Rate [ 98 Monitoring electrodes] Respiratory 20 Rate Blood Pressure Blood Pressure 170/66 H 167/61 H [Right Brachial artery] O2 Saturation 94 If not protocol 3 3 : Oxygen Flow, liters/minute Oxygen O2 Source Nasal cannula Oxygen Flow Rate 4 I&O (Last 24 Hrs): Intake and Output Totals x24h 05/19/23 05/20/23 05/21/23 23:59 23:59 23:59 Intake Total 850 300 Output Total 300 Balance 550 300 General: Alert, Oriented x3, Other (emotional liable) HEENT: PERRLA, EOMI Neck: Supple, No JVD Neuro: Alert, Non Focal Cardiovascular: Regular rate, Other (systolic murmur 3/6 grade) Respiratory: Chest non-tender, Other (low lung sounds) Abdomen: Soft, No tenderness Extremities: No clubbing, No cyanosis, No edema Skin: No breakdown - Results Results: Laboratory Results WBC 4.9 x10^3/uL (4.8-10.8) 05/21/23 07:38 RBC 3.29 10^6/uL (4.20-5.40) L 05/21/23 07:38 Hgb 10.2 g/dL (12.0-16.0) L 05/21/23 07:38 Hct 30.8 % (37.0-47.0) L 05/21/23 07:38 MCV 93.6 fL (81.0-99.0) 05/21/23 07: MCH 31.0 pg (27.0-31.0) 05/21/23 07:38 MCHC 33.1 g/dL (32.0-36.0) 05/21/23 07:38 RDW 13.1 % (12.0-15.0) 05/21/23 07:38 Plt Count 184 10^3/uL (130-450) 05/21/23 07:38 MPV 8.4 fL (7.9-10.8) 05/21/23 07:38 Neut # (Auto) 4.2 10^3/uL (1.5-6.6) 05/21/23 07:38 Lymph # (Auto) 0.2 10^3/uL (1.5-3.5) L 05/21/23 07:38 Pershing # (Auto) 0.4 10^3/uL (0.0-1.0) 05/21/23 07:38 Eos # (Auto) 0.2 10^3/uL (0.0-0.7) 05/21/23 07:38 Baso # (Auto) 0.0 10^3/uL (0.0-0.1) 05/21/23 07:38 Absolute Nucleated RBC 0.00 x10^3/uL 05/21/23 07:38 Nucleated RBC % 0.0 /100WBC 05/21/23 07:38 Manual Slide Review Indicated 05/20/23 20: Platelet Estimate DECREASED (<130,000) (NORMAL) 05/20/23 20: Platelet Morphology NORMAL APPEARANCE (NORMAL) 05/20/23 20:01 RBC Morph Micro Appear NORMAL APPEARANCE (NORMAL) 05/20/23 20:01 Sodium 131 mmol/L (135-145) L 05/21/23 07:38 Potassium 3.8 mmol/L (3.5-4.5) 05/21/23 07:38 Chloride 98 mmol/L (101-111) L 05/21/23 07:38 Carbon Dioxide 26 mmol/L (21-32) 05/21/23 07:38 Anion Gap 7.0 (6-13) 05/21/23 07:38 BUN 12 mg/dL (6-20) 05/21/23 07:38 Creatinine 0.6 mg/dL (0.6-1.3) 05/21/23 07:38 Estimated GFR (MDRD) 96 (>89) 05/21/23 07:38 Glucose 95 mg/dL (74-104) 05/21/23 07:38 Lactic Acid < 0.2 mmol/L (0.5-2.2) L 05/20/23 20:01 Calcium 8.2 mg/dL (8.5-10.3) L 05/21/23 07:38 Total Bilirubin 0.6 mg/dL (0.2-1.0) 05/20/23 21:01 AST 25 IU/L (10-42) 05/20/23 21:01 ALT 23 IU/L (10-60) 05/20/23 21:01 Alkaline Phosphatase 56 IU/L (42-121) 05/20/23 21:01 B-Natriuretic Peptide 9 pg/mL (5-100) 05/20/23 20:01 Total Protein 6.2 g/dL (6.4-8.9) L 05/20/23 21:01 Albumin 3.2 g/dL (3.2-5.5) 05/20/23 21: Globulin 3.0 g/dL (2.1-4.2) 05/20/23 21: Albumin/Globulin Ratio 1.1 (1.0-2.2) 05/20/23 21:01 Procalcitonin Immunoas 0.13 ng/mL (<0.5) 05/21/23 01:05 Blood Type A POSITIVE 05/20/23 Antibody Screen NEGATIVE 10/01/23 20:29 Crossmatch IS Only See Detail 05/20/23 20:29 - Procedures Procedures: Procedures EXCISION OF MIDDLE ESOPHAGUS, ENDO, DIAGN (09/06/16) ABX Reporting Has patient been on IV antibiotics over the past 48 hours?: Yes Current Medications - Current Medications Current Medications: Active Medications Generic Name Dose Route Start Last Admin Trade Name Freq PRN Reason Stop Dose Admin Acetaminophen 650 mg 05/20/23 23:47 05/21/23 06:20 Acetaminophen 325 Mg Tablet PO 650 mg Q4HR PRN Administration Pain 1 to 4, or Fever Hydrocodone Bitart/Acetaminophen 1 tab 05/20/23 23:53 Hydrocod/Acetam 5/325 Mg Tablet PO Q6H PRN PAIN Albuterol/Ipratropium 3 ml 05/20/23 23:47 Ipratropium/Albuterol 3 Ml Neb INH 05/22/23 00:59 Q4HR PRN Shortness of Air/Wheezing Alprazolam 0.5 mg 05/21/23 17:43 Alprazolam 0.25 Mg Tablet PO BID PRN Anxiety Atorvastatin Calcium 40 mg 05/21/23 09:00 05/21/23 08:15 Atorvastatin 40 Mg Tablet PO 40 mg DAILY LAKISHA Administration Calcium Carbonate/Glycine 1,500 mg 05/21/23 09:00 05/21/23 08:15 Calcium Carb (Oyster Shell) 500 Mg Tablet PO 1,500 mg DAILY LAKISHA Administration Cholecalciferol 75 mcg 05/21/23 09:00 05/21/23 08:14 Cholecalciferol 25 Mcg Tablet PO 75 mcg DAILY LAKISHA Administration Dexamethasone 4 mg 05/22/23 09:00 Dexamethasone 4 Mg Tablet PO 05/24/23 08:59 DAILY LAKISHA Enoxaparin Sodium 40 mg 05/21/23 09:00 05/21/23 08:15 Enoxaparin 40 Mg/0.4 Ml Syringe SUBQ 40 mg DAILY LAKISHA Administration Escitalopram Oxalate 10 mg 05/21/23 01:30 05/21/23 01:50 Escitalopram 10 Mg Tablet PO 10 mg QPM LAKISHA Administration Folic Acid 1 mg 05/22/23 09:00 Folic Acid 1 Mg Tablet PO DAILY LAKISHA Sodium Chloride 1,000 mls @ 100 mls/hr 05/20/23 23:45 05/21/23 16:10 Normal Saline 0.9% IV Infused .Q10H LAKISHA Infusion Azithromycin 500 mg/ Sodium 250 mls @ 250 mls/hr 05/21/23 21:00 Chloride IV 05/22/23 21:59 HS LAKISHA Ceftriaxone Sodium 2 gm/ 100 mls @ 200 mls/hr 05/21/23 22:00 Sodium Chloride IV 05/25/23 22:29 2[address] [facility] Multivitamins/Minerals 1 tab 05/21/23 09:00 05/21/23 08:15 Multivitamin W/Minerals Tablet PO 1 tab DAILY [facility] Administration Ondansetron HCl 4 mg 05/20/23 23:47 Ondansetron Odt 4 Mg Tablet TL Q6HR PRN Nausea / Vomiting Ondansetron HCl 4 mg 05/20/23 23:47 Ondansetron 4 Mg/2 Ml Vial IVP Q6HR PRN Nausea / Vomiting Pantoprazole Sodium 40 mg 05/21/23 09:00 05/21/23 08:14 Pantoprazole 40 Mg Tablet PO 40 mg DAILY [facility] Administration Nirmatrelvir/ 1 each 05/21/23 18:00 Ritonavir Prepack PO 05/21/23 18:01 ONCE LAKISHA Prochlorperazine Edisylate 10 mg 05/21/23 01:18 05/21/23 01:50 Prochlorperazine 10 Mg/2 Ml Vial IVP 10 mg Q6HR PRN Administration Nausea / Vomiting Saccharomyces Boulardii 250 mg 05/21/23 08:00 05/21/23 17:43 Saccharomyces Boulardii 250 Mg Capsule PO 250 mg BIDWM LAKISHA Administration Sodium Chloride 10 ml 05/20/23 23:47 Sodium Chloride Flush 0.9% 10 Ml Syringe IVP PRN PRN NEEDED PER PROVIDER ORDERS Sodium Chloride 10 ml 05/21/23 01:00 05/21/23 17:45 Sodium Chloride Flush 0.9% 10 Ml Syringe IVP 10 ml 0100,0900,1700 [facility] Administration Calcium Carbonate [Calcium] 1,800 mg PO DAILY 02/01/15 Cholecalciferol (Vitamin D3) [Vitamin D] 3,000 unit PO DAILY 02/01/15 Folic Acid/Mv,Fe,Min [Centrum Multivitamin Tab Chew] 1 tab PO DAILY 02/01/15 Atorvastatin Calcium 40 mg PO DAILY 10/02/22 Omeprazole 20 mg PO DAILY 10/02/22 Escitalopram [Lexapro] 10 mg PO DAILY 04/25/23 ALPRAZolam [Xanax] 0.25 - 0.5 mg PO Q6H PRN 05/21/23 Acetaminophen [Acetaminophen Extra Strength] 1,000 mg PO Q6H PRN 05/21/23 Aspirin/Acetaminophen/Caffeine [Migraine 250-250-65 mg Caplet] 2 tab PO DAILY PRN 05/21/23 Docusate Sodium [Dulcolax Stool Softener] 100 mg PO DAILY PRN 05/21/23 Nirmatrelvir/Ritonavir [Paxlovid 300-100 mg Pack (Eua)] 1 each PO BID 05/21/23 Prochlorperazine Maleate 10 mg PO Q4H PRN 05/21/23 Tiotropium [place] [Spiriva Respimat] 2 puffs INH DAILY 05/21/23 Zolpidem [Ambien] 5 mg PO QPM PRN 05/21/23 predniSONE [Deltasone] 20 - 40 mg PO DAILY PRN 05/21/23
[2023-05-21] MEDS ORDERED: DEXAMETHASONE 10 MG/ML VIAL IVP SCH (09:00)
[2023-05-21] MEDS ORDERED: ESCITALOPRAM 10 MG TABLET PO SCH (09:00)
[2023-05-21] MEDS ORDERED: NIRMATRELVIR/RITONAVIR PREPACK PO SCH ×2 (09:00→18:00)
--- NOTE | 2023-05-21 11:40 | PHARMACY PROGRESS NOTE ---
- Best Possible Medication History Admit Date and Time: 05/20/23 9980 Processed by: Pharmacy Medication History completed: Yes Secondary Source(s): Prescription bottles, Pharmacy records, Insurance records, Previous admit records As the person ultimately responsible for medication therapy, providers are able to order a medication from an existing home medication list in [facility] via the "Reconcile Routine" prior to Confirmation of that medication by direct support professional. Such practice is discouraged except when the physician, in their clinical judgment, deems that a medical need exists for a medication without regard to previous use.
[2023-05-21] MEDS ORDERED: NIRMATRELVIR/RITONAVIR PREPACK PO ONE (16:00)
[2023-05-21] MEDS: AZITHROMYCIN INJ 500 MG in SODIUM CHLORIDE 0.9% 250 ML IV SCH (21:50)
[2023-05-21] MEDS ORDERED: cefTRIAXone 2 GM in SODIUM CHLORIDE 0.9% MINIBAG 100 ML IV SCH (22:00)
[2023-05-21] MEDS: SODIUM CHLORIDE 0.9% IV SCH (23:32)
[2023-05-21] MEDS: CEFTRIAXONE IV SCH (23:32)
[2023-05-22 05:44] LABS: BASOPHILS % (AUTO) 0.2 %; HCT - HEMATOCRIT 33.9 % (37.0-47.0); HGB - HEMOGLOBIN 11.1 g/dL (12.0-16.0); LYMPHOCYTES # (AUTO) 0.2 10^3/uL (1.5-3.5); MEAN CORPUSCULAR HEMOGLOBIN 30.7 pg (27.0-31.0); MEAN CORPUSCULAR HGB CONC 32.7 g/dL (32.0-36.0); MEAN CORPUSCULAR VOLUME 93.6 fL (81.0-99.0); MEAN PLATELET VOLUME 8.6 fL (7.9-10.8); MONOCYTES # (AUTO) 0.3 10^3/uL (0.0-1.0); MONOCYTES % (AUTO) 5.8 %; NEUTROPHILS # (AUTO) 4.7 10^3/uL (1.5-6.6); NEUTROPHILS % (AUTO) 89.8 %; PLT - PLATELET COUNT 231 10^3/uL (130-450); RED BLOOD COUNT 3.62 10^6/uL (4.20-5.40); RED CELL DISTRIBUTION WIDTH 12.4 % (12.0-15.0); WHITE BLOOD COUNT 5.2 x10^3/uL (4.8-10.8)
[2023-05-22 05:59] LABS: CREATININE 0.7 mg/dL (0.6-1.3)
[2023-05-22] MEDS: SODIUM CHLORIDE FLUSH 0.9% 10 ML SYRINGE IVP SCH ×2 (08:28→16:54)
[2023-05-22] MEDS: CALCIUM CARB (OYSTER SHELL) 500 MG TABLET PO SCH (08:29)
[2023-05-22] MEDS: ALPRAZolam 0.25 MG TABLET PO PRN ×2 (08:29→21:44)
[2023-05-22] MEDS: FOLIC ACID 1 MG TABLET PO SCH (08:29)
[2023-05-22] MEDS: MULTIVITAMIN W/MINERALS TABLET PO SCH (08:29)
[2023-05-22] MEDS: ENOXAPARIN 40 MG/0.4 ML SYRINGE SUBQ SCH (08:29)
[2023-05-22] MEDS: PANTOPRAZOLE 40 MG TABLET PO SCH (08:30)
[2023-05-22] MEDS: ATORVASTATIN 40 MG TABLET PO SCH (08:30)
[2023-05-22] MEDS: CHOLECALCIFEROL 25 MCG TABLET PO SCH (08:30)
[2023-05-22] MEDS: SACCHAROMYCES BOULARDII 250 MG CAPSULE PO SCH ×2 (08:30→16:53)
[2023-05-22] MEDS ORDERED: dexAMETHasone 4 MG TABLET PO SCH (09:00)
[2023-05-22] MEDS ORDERED: LORazepam 2 MG/ML VIAL IVP PRN (09:13)
[2023-05-22] MEDS ORDERED: DOCUSATE SODIUM 100 MG CAPSULE PO PRN (09:17)
[2023-05-22] MEDS ORDERED: ZOLPIDEM 5 MG TABLET PO PRN (09:17)
[2023-05-22] MEDS: THIAMINE 100 MG TABLET PO SCH (11:55)
[2023-05-22] MEDS ORDERED: IBUPROFEN 600 MG TABLET PO PRN (18:35)
--- NOTE | 2023-05-22 20:24 | PROVIDER PROGRESS NOTE ---
Assessment/Plan - Problem List (1) Acute hypoxic respiratory failure Assessment/Plan: Secondary to pneumonia, COVID-19 viral pneumonia versus superimposed bacterial pneumonia Also underlying COPD patient, with small cell lung cancer, thus has poor immune system Plan: Continue oxygen treatment, goal of SaO2 88 to 92%, titrating down to room air. Anticipate discharge whem she is on room air. Continuing with ceftriaxone and azithromycin, Zithro 3 days treatment was planned She finished the last dose of Paxlovid Today I will stop Decadron, dose of 4 mg is causing anxiety and hyperactivity, labile emotion from high-dose steroids, and HTN (2) COVID She finished the last dose of Paxlovid Her O2 needs and her cough have decreased Plan: Today I will stop Decadron, dose of 4 mg is causing anxiety and hyperactivity, labile emotion from high-dose steroids, and HTN. Remain in contact/resp isolation (3) Hyponatremia Assessment/Plan: Due to poor oral intake, and nausea vomiting at presentation Sodium has improved, 126>> 131 yesterday>> 136 today (all labs reviewed) Plan: Tolerated clear liquid diet, advancing diet. Anticipate discharge tomorrow (4) Lung cancer Assessment/Plan: Extensive small cell lung cancer diagnosed in August,. Was treated with atezolizumab, on hold since . Due to pneumonitis Patient follows Dr. Andres as outpatient, who comes to [facility] on . (5) Anxiety Assessment/Plan: Patient can be emotionally labile and today wants her steroid stopped, today BP as high as 170 syst Plan: Continue home Lexapro Cont her prn po Xanax. Will add a CIWA protocol with prn iv Ativan - Current Meds Current Meds: Current Medications Generic Name Dose Route Start Last Admin Trade Name Freq PRN Reason Stop Dose Admin Alprazolam 0.5 mg 05/21/23 17:43 05/22/23 08:29 Alprazolam 0.25 Mg Tablet PO 0.5 mg BID PRN Administration Anxiety Atorvastatin Calcium 40 mg 05/21/23 09:00 05/22/23 08:30 Atorvastatin 40 Mg Tablet PO 40 mg DAILY LAKISHA Administration Calcium Carbonate/Glycine 1,500 mg 05/21/23 09:00 05/22/23 08:29 Calcium Carb (Oyster Shell) 500 Mg Tablet PO 1,500 mg DAILY LAKISHA Administration Cholecalciferol 75 mcg 05/21/23 09:00 05/22/23 08:30 Cholecalciferol 25 Mcg Tablet PO 75 mcg DAILY LAKISHA Administration Enoxaparin Sodium 40 mg 05/21/23 09:00 05/22/23 08:29 Enoxaparin 40 Mg/0.4 Ml Syringe SUBQ 40 mg DAILY LAKISHA Administration Escitalopram Oxalate 10 mg 05/21/23 01:30 05/21/23 21:54 Escitalopram 10 Mg Tablet PO 10 mg QPM LAKISHA Administration Folic Acid 1 mg 05/22/23 09:00 05/22/23 08:29 Folic Acid 1 Mg Tablet PO 1 mg DAILY LAKISHA Administration Azithromycin 500 mg/ Sodium 250 mls @ 250 mls/hr 05/21/23 21:00 05/22/23 08:28 Chloride IV 05/22/23 21:59 Infused HS LAKISHA Infusion Ceftriaxone Sodium 2 gm/ 100 mls @ 200 mls/hr 05/21/23 22:00 05/22/23 00:32 Sodium Chloride IV 05/25/23 22:29 Infused 2200 LAKISHA Infusion Pantoprazole Sodium 40 mg 05/21/23 09:00 05/22/23 08:30 Pantoprazole 40 Mg Tablet PO 40 mg DAILY LAKISHA Administration Prochlorperazine Edisylate 10 mg 05/21/23 01:18 05/21/23 23:28 Prochlorperazine 10 Mg/2 Ml Vial IVP 10 mg Q6HR PRN Administration Nausea / Vomiting Saccharomyces Boulardii 250 mg 05/21/23 08:00 05/22/23 16:53 Saccharomyces Boulardii 250 Mg Capsule PO 250 mg BIDWM LAKISHA Administration Sodium Chloride 10 ml 05/21/23 01:00 05/22/23 16:54 Sodium Chloride Flush 0.9% 10 Ml Syringe IVP 10 ml 0100,0900,1700 LAKISHA Administration Thiamine HCl 100 mg 05/22/23 11:00 05/22/23 11:55 Thiamine 100 Mg Tablet PO 100 mg DAILY LAKISHA Administration - Lab Result Fish Bone Diagrams: 05/23/23 06:39 05/23/23 06:39 - Additional Planning My Orders: My Active Orders 05/22/23 09:13 CIWA - AR Score Card [RC] Q4HR LORazepam INJ [Ativan Inj (Vial)] 1 mg IVP Q30M PRN 05/22/23 09:17 Docusate Sodium 100Mg Capsule [Colace 100Mg Capsule] 100 mg PO DAILY PRN Zolpidem [Ambien] 5 mg PO QPM PRN 05/22/23 11:00 Thiamine [Vitamin B-1] 100 mg PO DAILY 05/22/23 18:35 Ibuprofen [Motrin] 600 mg PO Q6HR PRN 05/23/23 08:00 Vitamin [Trinatal Rx 1] 1 tab PO DAILYWM Subjective - Subjective Patient Reports: Feeling Better (Says the steroids make her feel like "I'm about to explode".) Nursing Reports: Other (Requests for something to "vcalme her down". RN confirms pt says she drinks alcohol) Objective Vital Signs: Vital Signs - 24 hr 05/21/23 05/22/23 05/22/23 23:40 08:07 14:51 Temperature 36.3 C L 36.3 C L Heart Rate [ 82 86 Monitoring electrodes] Respiratory 20 20 20 Rate Blood Pressure 165/68 H 170/74 H [Right Brachial artery] O2 Saturation 96 98 90 L If not protocol 2 : Oxygen Flow, liters/minute 05/22/23 05/22/23 05/22/23 17:00 17:21 17:42 Temperature 36.3 C L Heart Rate [ 90 Monitoring electrodes] Respiratory 16 Rate Blood Pressure 156/77 H [Right Brachial artery] O2 Saturation 94 90 L 94 If not protocol : Oxygen Flow, liters/minute Oxygen O2 Source Room air Oxygen Flow Rate 4 I&O (Last 24 Hrs): Intake and Output Totals x24h 05/20/23 05/21/23 05/22/23 23:59 23:59 23:59 Intake Total 850 2921.667 1810 Output Total 300 Balance 550 2921.667 1810 General: Alert, Oriented x3, No acute distress HEENT: PERRLA, EOMI Neck: Supple, No JVD Neuro: Alert, Non Focal, Other (Hyperactive, pacing in room) Cardiovascular: Regular rate, No murmurs Respiratory: Other (Poor air mvm but clear) Abdomen: Soft, No tenderness Extremities: No clubbing, No edema, No tenderness/swelling - Results Results: Laboratory Results WBC 5.2 x10^3/uL (4.8-10.8) 05/22/23 05:19 RBC 3.62 10^6/uL (4.20-5.40) L 05/22/23 05:19 Hgb 11.1 g/dL (12.0-16.0) L 05/22/23 05:19 Hct 33.9 % (37.0-47.0) L 05/22/23 05:19 MCV 93.6 fL (81.0-99.0) 05/22/23 05:19 MCH 30.7 pg (27.0-31.0) 05/22/23 05:19 MCHC 32.7 g/dL (32.0-36.0) 05/22/23 05:19 RDW 12.4 % (12.0-15.0) 05/22/23 05:19 Plt Count 231 10^3/uL (130-450) 05/22/23 05:19 MPV 8.6 fL (7.9-10.8) 05/22/23 05:19 Neut # (Auto) 4.7 10^3/uL (1.5-6.6) 05/22/23 05:19 Lymph # (Auto) 0.2 10^3/uL (1.5-3.5) L 05/22/23 05:19 [place] # (Auto) 0.3 10^3/uL (0.0-1.0) 05/22/23 05:19 Eos # (Auto) 0.0 10^3/uL (0.0-0.7) 05/22/23 05:19 Baso # (Auto) 0.0 10^3/uL (0.0-0.1) 05/22/23 05:19 Absolute Nucleated RBC 0.00 x10^3/uL 05/22/23 05:19 Nucleated RBC % 0.0 /100WBC 05/22/23 05:19 Manual Slide Review Indicated 05/20/23 20:01 Platelet Estimate DECREASED (<130,000) (NORMAL) 05/20/23 20:01 Platelet Morphology NORMAL APPEARANCE (NORMAL) 05/20/23 20:01 RBC Morph Micro Appear NORMAL APPEARANCE (NORMAL) 05/20/23 20:01 Sodium 134 mmol/L (135-145) L 05/22/23 05:19 Potassium 4.0 mmol/L (3.5-4.5) 05/22/23 05:19 Chloride 99 mmol/L (101-111) L 05/22/23 05:19 Carbon Dioxide 28 mmol/L (21-32) 05/22/23 05:19 Anion Gap 7.0 (6-13) 05/22/23 05:19 BUN 11 mg/dL (6-20) 05/22/23 05:19 Creatinine 0.7 mg/dL (0.6-1.3) 05/22/23 05:19 Estimated GFR (MDRD) 81 (>89) L 05/22/23 05:19 Glucose 143 mg/dL (74-104) H 05/22/23 05:19 Lactic Acid < 0.2 mmol/L (0.5-2.2) L 05/20/23 20:01 Calcium 9.0 mg/dL (8.5-10.3) 05/22/23 05:19 Total Bilirubin 0.6 mg/dL (0.2-1.0) 05/20/23 21:01 AST 25 IU/L (10-42) 05/20/23 21:01 ALT 23 IU/L (10-60) 05/20/23 21:01 Alkaline Phosphatase 56 IU/L (42-121) 05/20/23 21:01 B-Natriuretic Peptide 9 pg/mL (5-100) 05/20/23 20:01 Total Protein 6.2 g/dL (6.4-8.9) L 05/20/23 21:01 Albumin 3.2 g/dL (3.2-5.5) 05/20/23 21:01 Globulin 3.0 g/dL (2.1-4.2) 05/20/23 21:01 Albumin/Globulin Ratio 1.1 (1.0-2.2) 05/20/23 21:01 Procalcitonin Immunoas 0.13 ng/mL (<0.5) 05/21/23 01:05 Blood Type TNP 05/20/23 20:29 Antibody Screen TNP 05/20/23 20:29 Crossmatch IS Only See Detail 05/20/23 20:29 - Procedures Procedures: Procedures EXCISION OF MIDDLE ESOPHAGUS, ENDO, DIAGN (09/06/16)
[2023-05-22] MEDS ORDERED: SODIUM CHLORIDE 0.9% 100ML 100 ML IV ONE (21:12)
[2023-05-22] MEDS: AZITHROMYCIN INJ 500 MG in SODIUM CHLORIDE 0.9% 250 ML IV SCH (21:42)
[2023-05-22] MEDS: ESCITALOPRAM 10 MG TABLET PO SCH (21:44)
[2023-05-22] MEDS: SODIUM CHLORIDE 0.9% IV SCH (23:37)
[2023-05-22] MEDS: CEFTRIAXONE IV SCH (23:37)
[2023-05-23] MEDS: SODIUM CHLORIDE FLUSH 0.9% 10 ML SYRINGE IVP SCH ×3 (00:15→08:13)
[2023-05-23 06:48] LABS: HCT - HEMATOCRIT 33.9 % (37.0-47.0); HGB - HEMOGLOBIN 11.3 g/dL (12.0-16.0); LYMPHOCYTES # (AUTO) 0.3 10^3/uL (1.5-3.5); LYMPHOCYTES % (AUTO) 4.7 %; MEAN CORPUSCULAR HEMOGLOBIN 31.2 pg (27.0-31.0); MEAN CORPUSCULAR HGB CONC 33.3 g/dL (32.0-36.0); MEAN CORPUSCULAR VOLUME 93.6 fL (81.0-99.0); MEAN PLATELET VOLUME 8.2 fL (7.9-10.8); MONOCYTES # (AUTO) 0.4 10^3/uL (0.0-1.0); MONOCYTES % (AUTO) 5.8 %; NEUTROPHILS # (AUTO) 6.3 10^3/uL (1.5-6.6); NEUTROPHILS % (AUTO) 89.2 %; PLT - PLATELET COUNT 223 10^3/uL (130-450); RED BLOOD COUNT 3.62 10^6/uL (4.20-5.40); RED CELL DISTRIBUTION WIDTH 12.9 % (12.0-15.0)
[2023-05-23 07:04] LABS: CALCIUM 9.5 mg/dL (8.5-10.3); CREATININE 0.7 mg/dL (0.6-1.3); POTASSIUM 3.6 mmol/L (3.5-4.5)
[2023-05-23 08:00] VITALS: BP 155/80; O2SAT 94
[2023-05-23] MEDS ORDERED: PRENATAL VITAMIN TABLET PO SCH (08:00)
[2023-05-23] MEDS: ENOXAPARIN 40 MG/0.4 ML SYRINGE SUBQ SCH (08:12)
[2023-05-23] MEDS: CALCIUM CARB (OYSTER SHELL) 500 MG TABLET PO SCH (08:13)
[2023-05-23] MEDS: ATORVASTATIN 40 MG TABLET PO SCH (08:13)
[2023-05-23] MEDS: CHOLECALCIFEROL 25 MCG TABLET PO SCH (08:13)
[2023-05-23] MEDS: FOLIC ACID 1 MG TABLET PO SCH (08:13)
[2023-05-23] MEDS: SACCHAROMYCES BOULARDII 250 MG CAPSULE PO SCH (08:13)
[2023-05-23] MEDS: THIAMINE 100 MG TABLET PO SCH (08:14)
[2023-05-23] MEDS: PANTOPRAZOLE 40 MG TABLET PO SCH (08:14)
--- NOTE | 2023-05-23 12:35 | Discharge Plan ---
Discharge Plan Problem Reviewed?: Yes Disposition: Home, Self Care Condition: Fair Diet: Regular Activity Restrictions: Activity as Tolerated Shower Restrictions: No Driving Restrictions: No Instruction Topics: COVID-19 [facility] Health Concerns: You were hospitalized to treat a pneumonia which was probably a bacterial pneumonia and COVID-pneumonia. You needed supplemental oxygen for very low oxygen saturation levels. You were kept in isolation as per guidelines. You are being discharged home today. You should continue to quarantine until you are 10 days out from the very first day of your COVID symptoms, or when you test negative on a home COVID test. You have finished all treatment courses for the pneumonia and the COVID. You may resume all your usual pre-hospital medications. Since you have underlying COPD (emphysema), you qualify to attend Pulmonary Rehab here at the hospital on the ground floor (formerly called the [facility]). You would need a referral from your provider to attend Pulmonary Rehab and get those benefits. You were tested to see if you need home oxygen and you do. No supplemental oxygen is needed at rest, since you have good O2 saturations at rest, but an order for home oxygen set at 2 L/min with any activity, is being ordered for you to use at home and when you are away from home. You may see your PCP or Oncologist or a Fire Control Mechanic to do a determine if and when you can stop using the supplemental O2. Plan of Treatment: As above. Care Goals: Improvement in symptoms and stabilization are the goals. Assessment: The patient understands and is agreeable with the plan. Additional Instructions or Follow Up instructions: If you have new or worsening symptoms, call your PCP or your oncologist or grommet machine operator for advice, or come to an Urgent Care clinic, or the ER. Follow-Up Care: [facility] - Pulmonary No Smoking: If you smoke, Please STOP! Call for help. Follow-up with: KIRBY ECHAVARRIA MD [Physician No Access] -
--- NOTE | 2023-05-23 12:53 | DISCHARGE SUMMARY ---
Discharge Summary Admit Date: 05/20/23 Discharge Date: 05/23/23 Discharging Provider: Dr Martin Primary Care Provider: Dr Dmitry Leal ([facility] [place]) Code Status: Do Not Attempt Resuscitation Condition at Discharge: Fair Discharge Disposition: 01 Home, Self Care - HPI History of Present Illness: 78 yo F with PMH of COPD, extensive SCLC dx'd 08/2022 with maintenance Atezolizumab since 02/14/2023-On hold since 04/25/2023 due to pneumonitis, HLD, GERD, Anxiety presented to the ER for c/o 1 day h/o increased Shortness of breath. Pt noticed increased SOB about 6 weeks ago, went to see her Oncologist, CT chest was done, which showed Pneumonitis; pt was put on a course of Prednisone (40 mg PO qd x 7 days, then 20 mg PO QD x 7 days). Pt says taking the steroids made her feel manic/happy. Her symptoms improved. While she was on steroids, she went on a cruise to [place] out of [place]. On the cruise, after her last day of steroids, she had a bad day with fatigue. She called her Palliative care RN and was prescribed a tapering dose of steroids and she felt better. Then, about 4 days into the cruise/8 days ago, she began to have increased Shortness of breath with activity, cough, no sputum, +chest congestion, fatigue, nausea, subjective F/C. Her roommate also felt ill and went to see a physician and tested + for both Influenza and COVID-19. Pt then got tested 3 days ago and her COVID-19 was +; she was negative for Influenza. She was started on Paxlovid 3 days ago. Today, her symptoms worsened. She had worse Shortness of breath. She checked her SpO2 and it was in the 80s, which did not improved with home inhaler, so she called EMS. Pt denies abdo pain, dysuria. Pt ate well on the cruise, but has not eaten well x 2 days. Temp at home today: 100.8F. +vomiting at home a couple of times: non-bloody. EMS reported SpO2 88% and placed pt on O2 and gave her Duonebs. In the ER, BP 152/62, HR 103, SpO2 87% RA-97% on 2L NC O2. Note: 1st set of labs were error results. Per 2nd set of labs: Hgb 11.5, Na 126, K 3.2 CXR: Diffuse patchy airspace opacities L mid and upper lung, RML opacity. EKG: NSR at 93 bpm, no STTw changes Pt was given Rocephin/Azithromycin, Duonebs, O2, and KCl 25 meQ in the ER and is being admitted. Her CODE BLUE status is DNR. - HOSPITAL COURSE Hospital Course: (1) Acute hypoxic respiratory failure Secondary to COVID-19 viral pneumonia versus superimposed bacterial pneumonia, and underlying COPD, plus small cell lung cancer, thus she has a poor immune system. She was treated with supplemental oxygen and empiric treatment for a community-aquired pneumonia. Her O2 needs slowly decreased to room air. On the day of discharge she underwent an oximetry walk test: The patient was not hypoxic on room air at rest with O2 sats of 96%. With exertion on room air, her O2 sat dropped to 87%. On O2 at 2 L/min nasal cannula during exertion, her O2 sat improved to 93%. I am ordering home oxygen for her. She may breathe room air at rest but should use suppl oxygen set at 2 L/min during exertion to treat her COPD. (2) COVID She was on Paxlovid and finished it here. She was also put on Decadron and the dose was rapidly titrated down and then off. Her cough and desaturations improved. She was discharged and advised to follow quarantine recommendations as per guidelines. (3) Hyponatremia Due to poor oral intake, and nausea & vomiting at presentation. She was put on IV NS hydration. Eventually she could tolerate a diet which was advanced. Her serum sodium improved daily. Sodium at discharge was 132. (4) Lung cancer Extensive small cell lung cancer diagnosed in August,. She was treated with atezolizumab, which is on hold since , due to pneumonitis. Patient follows Dr. Andres at [facility]. (5) Anxiety Patient can be emotionally labile and after several days wanted her steroid stopped,which was done. We had her on her home Lexapro and her prn Ativan dose. - ALLERGIES Allergies/Adverse Reactions: Allergies Allergy/AdvReac Type Severity Reaction Status Date / Time codeine AdvReac Nausea Verified 05/20/23 19:34 - MEDICATIONS Home Medications: Ambulatory Orders Medication Instructions Recorded Confirmed Calcium Carbonate [Calcium] 1,800 mg PO DAILY 02/01/15 05/20/23 Cholecalciferol (Vitamin D3) 3,000 unit PO DAILY 02/01/15 05/20/23 [Vitamin D3] Folic Acid/Mv,Fe,Min [Centrum 1 tab PO DAILY 02/01/15 05/20/23 Multivitamin Tab Chew] Atorvastatin Calcium 40 mg PO DAILY 10/02/22 05/20/23 Omeprazole 20 mg PO DAILY 10/02/22 05/20/23 HYDROcod/ACETAM 5/325 [[place] 5/325] 1 each PO Q6H PRN #10 tablet 10/06/22 05/20/23 Escitalopram [Lexapro] 10 mg PO DAILY 04/25/23 05/20/23 ALPRAZolam [Xanax] 0.25 - 0.5 mg PO Q6H PRN 05/21/23 05/21/23 Acetaminophen [Acetaminophen Extra 1,000 mg PO Q6H PRN 05/21/23 05/21/23 Strength] Aspirin/Acetaminophen/Caffeine 2 tab PO DAILY PRN 05/21/23 05/21/23 [Migraine 250-250-65 mg Caplet] Docusate Sodium [Dulcolax Stool 100 mg PO DAILY PRN 05/21/23 05/21/23 Softener] Prochlorperazine Maleate 10 mg PO Q4H PRN 05/21/23 05/21/23 Tiotropium [place] [Spiriva 2 puffs INH DAILY 05/21/23 05/21/23 Respimat] Zolpidem [Ambien] 5 mg PO QPM PRN 05/21/23 05/21/23 predniSONE [Deltasone] 20 - 40 mg PO DAILY PRN 05/21/23 05/21/23 - PHYSICAL EXAM AT DISCHARGE General Appearance: positive: No acute distress, Alert, Other (Appears younger than her age) Eyes Bilateral: positive: Normal inspection, EOMI ENT: positive: ENT inspection nml, No signs of dehydration Neck: positive: Nml inspection, No JVD Respiratory: positive: No respiratory distress, Breath sounds nml Cardiovascular: positive: Regular rate & rhythm, No murmur Abdomen: positive: Non-tender, No distention Skin: positive: Warm, Dry Extremities: positive: Non-tender, No pedal edema Neurologic/Psychiatric: positive: Oriented x3, CN's nml (2-12), Motor nml - LABS Result Diagrams: 05/23/23 06:39 05/23/23 06:39 - DIAGNOSTIC IMAGING Diagnostic Imaging Results: Final report reviewed - FOLLOW UP Follow Up: See PCP after finishing quaratine - TIME SPENT Time Spent in Discharge (Minutes): 45
== END 2023-05-23 13:35 | disposition home or self-care (01) | DRG 177 ==
LOC: EDBD → EDUNIT# → ED 19:20 → MS2 23:48 → UNDOADMIN 23:48
PROVIDERS: ADMIT Internal Medicine; ATTEND Internal Medicine
DX: U07.1 COVID-19 (principal); J12.82 Pneumonia due to coronavirus disease 2019; J96.01 Acute respiratory failure with hypoxia; E87.1 Hypo-osmolality and hyponatremia; J18.9 Pneumonia, unspecified organism; C34.90 Malignant neoplasm of unspecified part of unspecified bronchus or lung; J44.0 Chronic obstructive pulmonary disease with (acute) lower respiratory infection; D64.9 Anemia, unspecified; E78.5 Hyperlipidemia, unspecified; Z66 Do not resuscitate; F41.9 Anxiety disorder, unspecified; E78.00 Pure hypercholesterolemia, unspecified; K21.9 Gastro-esophageal reflux disease without esophagitis; R11.2 Nausea with vomiting, unspecified; E87.6 Hypokalemia; Z79.899 Other long term (current) drug therapy
CPT/HCPCS: 36415; 71045; 80048; 80053; 82272; 83605; 83880; 84145; 85025; 87040; 93005; 94761; 96365; 99285; A9270; J1650; 85014; 85018; 86850; 86900; 86901; 86920

== ENCOUNTER 2023-05-30 10:30 | Outpatient (CLI) | payer MEDICARE ==
--- NOTE | 2023-05-30 11:49 | XRAY Report ---
PROCEDURE: Chest 2 View X-Ray INDICATIONS: PNEUMONIA, BACTERIAL TECHNIQUE: 2 views of the chest were acquired. COMPARISON: Chest x-ray 05/20/2023, CT chest 04/24/2023 FINDINGS: Surgical changes and devices: Left Port-A-Cath is present. Lungs and pleura: There is patchy appearance of left upper lobe opacity, relatively unchanged compar ed to prior exam. Mediastinum: Mediastinal contours appear normal. Heart size is normal. Bones and chest wall: No suspicious bony lesions. Overlying soft tissues appear unremarkable. IMPRESSION: Persistent left upper lobe opacity possibly related to posttreatment change as identified on prior CT . Interval x-ray follow-up is recommended to document stability or resolution with appropriate therap y. Reviewed by: Olivia Holder MD on 05/30/2023 11:48 AM PDT Approved by: Olivia Holder MD on 05/30/2023 11:48 AM PDT Station ID: [id number]
== END 2023-05-30 10:31 | disposition home or self-care (01) ==
LOC: DI 10:30
PROVIDERS: ATTEND Nurse Practitioner Adult Health
DX: J15.9 Unspecified bacterial pneumonia (principal)

== ENCOUNTER 2023-08-29 12:47 | Outpatient (CLI) | payer MEDICARE ==
[2023-08-29] MEDS ORDERED: iohexoL-300 100 ML VIAL ONE (13:40)
[2023-08-29] MEDS ORDERED: iohexoL-300 100 ML VIAL IVP ONE (14:13)
--- NOTE | 2023-08-29 15:52 | CT Report ---
PROCEDURE: Chest W INDICATIONS: MALIGNANT NEOPLASM OF UPPER LOBE, LEFT BRONCHUS OR CONTRAST: 100mL Omni 300 TECHNIQUE: After the administration of intravenous contrast, a CT scan of the chest was performed. Images were recorded and evaluated at appropriate window settings. Reformats: axial MIP of the chest, coronal and sagittal. For radiation dose reduction, the following was used: automated exposure control, adjustme nt of mA and/or kV according to patient size. COMPARISON: CT 09/25/2022, 07/04/2023. FINDINGS: Image quality: Excellent. Lungs and pleura: Posttreatment change in the left perihilar region, with associated volume loss, bro nchiectasis. Increased atelectasis in the lingula. Overall, there is increased soft tissue attenuatio n in the left hilar region, particularly surrounding the lobar bronchi. A measurable section measures 2.0 x 1.9 cm, previously 1.5 x 1.7 cm (series 2, image 40). Small left pleural effusion, similar to prior. Dependent tree-in-bud nodules and centrilobular nodules in the lung bases, right greater than left. Mediastinum: Heart size is normal. No pericardial effusion. No large vessel abnormality. 1 cm right l ower paratracheal node, previously 0.9 cm (series 2, image 34). Patulous esophagus. Chest wall and lower neck: Thyroid is unremarkable. No axillary or supraclavicular adenopathy by size . Left chest wall port tip terminates in the mid right atrium. Bones: No aggressive osseous abnormality. Fusion of the T9 and T10 vertebral bodies. Upper Abdomen: Unremarkable. IMPRESSION: Post treatment change in the left mandie, similar to prior. However, there appears to be growing soft t issue extending along the hilum, particularly around the lobar bronchi. Differential includes increas ed fibrosis and post radiation change versus recurrent malignancy. Consider PET/CT. Slightly increased size of the right lower paratracheal node measuring 1 cm, previously 0.8 cm. Increased volume loss and bronchiectasis in the lingula. This could be post radiation change versus s uperimposed infection or less likely recurrent malignancy. Dependent tree-in-bud nodules and centrilobular nodules in the lung bases, right greater than left. F indings are suspicious for infectious or inflammatory bronchiolitis. Reviewed by: Janes Arellano MD on 08/29/2023 3:51 PM PST Approved by: Janes Arellano MD on 08/29/2023 3:51 PM PST Station ID: [id number]
== END 2023-08-29 12:48 | disposition home or self-care (01) ==
LOC: DI 12:47
PROVIDERS: ATTEND Internal Medicine
DX: C34.12 Malignant neoplasm of upper lobe, left bronchus or lung (principal); J47.9 Bronchiectasis, uncomplicated; R91.8 Other nonspecific abnormal finding of lung field

== ENCOUNTER 2023-12-03 08:00 | Outpatient (CLI) | payer MEDICARE | END 2023-12-03 23:59 | disposition home or self-care (01) | LOC: PC 08:00 | PROVIDERS: ATTEND Nurse Practitioner Adult Health | DX: Z51.5 Encounter for palliative care (principal); C7A.8 Other malignant neuroendocrine tumors; C7B.8 Other secondary neuroendocrine tumors; G89.3 Neoplasm related pain (acute) (chronic); Z87.891 Personal history of nicotine dependence; R06.00 Dyspnea, unspecified; R45.89 Other symptoms and signs involving emotional state; J90 Pleural effusion, not elsewhere classified; Z79.899 Other long term (current) drug therapy | CPT/HCPCS: 99215 ==

== ENCOUNTER 2023-12-05 11:12 | Outpatient (CLI) | payer MEDICARE ==
[2023-12-05] MEDS ORDERED: GADOTERATE MEGLUMINE 10 MMOL/20 ML VIAL ONE (11:24)
[2023-12-05] MEDS: GADOTERATE MEGLUMINE 10 MMOL/20 ML VIAL IVP ONE (12:13)
--- NOTE | 2023-12-05 14:58 | MRI Report ---
PROCEDURE: MRI brain with and without contrast. 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 COMPARISON: None. FINDINGS: CSF spaces: Basal cisterns are patent. No extra-axial fluid collections. Ventricles are normal in size and shape. Brain: Previously noted right frontal periventricular ring-enhancing metastasis is slightly smaller compared to the prior exam now measuring 10 mm in axis, previously 14 mm. Surrounding vasogenic edema is also slightly improved. No new lesions. No midline shift. No intracranial bleed. The brainstem appears normal. Diffusion-weighted images d emonstrate no acute infarct. Normal intravascular flow voids are present. Skull and face: Calvarial marrow is normal in signal. Orbits appear normal. Sinuses: Sinuses and mastoids appear clear. IMPRESSION: Positive response to treatment. Right frontal solitary metastasis has reduced in size and peripheral vasogenic edema. Reviewed by: Holden Cason MD on 12/05/2023 1:56 PM BLOSSOM Approved by: Holden Cason MD on 12/05/2023 1:56 PM BLOSSOM Station ID: [id number]
== END 2023-12-05 11:13 | disposition home or self-care (01) ==
LOC: DI 11:12
PROVIDERS: ATTEND Nurse Practitioner Adult Health
DX: C34.90 Malignant neoplasm of unspecified part of unspecified bronchus or lung (principal); C79.49 Secondary malignant neoplasm of other parts of nervous system
CPT/HCPCS: 70553; A9575

== ENCOUNTER 2023-12-05 11:17 | Outpatient (CLI) | payer MEDICARE ==
--- NOTE | 2023-12-05 15:04 | XRAY Report ---
PROCEDURE: Post Thoracentesis 1V CXR INDICATIONS: POST THORACENTESIS TECHNIQUE: One view of the chest was acquired. COMPARISON: Chest CT 10/17/2023 FINDINGS: Surgical changes and devices: Left subclavian Mediport. Lungs and pleura: Left lower lung opacity and left apical pleural thickening suggesting residual ple ural effusion. No pneumothorax post left-sided thoracentesis. There is left medial suprahilar, and pe rihilar opacity as well as haziness in the left infrahilar region compatible with patient's known car cinoma. There is clear. Mediastinum: Right cardiomediastinal contour appears normal. The left is obscured by opacities. The heart is not enlarged. Bones and chest wall: No suspicious bony lesions. Overlying soft tissues appear unremarkable. IMPRESSION: No pneumothorax post left thoracentesis. Left perihilar opacities and residual small left base effusion compatible with patient's known diseas e. Reviewed by: Aimee Yousif MD on 12/05/2023 3:03 PM PDT Approved by: Aimee Yousif MD on 12/05/2023 3:03 PM PDT Station ID: [id number]
--- NOTE | 2023-12-06 11:59 | Ultrasound Report ---
PROCEDURE: Thoracentesis Puncture INDICATIONS: LUNG CA WITH METS TECHNIQUE: The indications, alternatives, benefits, risks, and complications of the procedure were explained to the patient. Written informed consent was obtained and placed in the chart. The chest was examined sonographically, and an appropriate site was chosen for thoracentesis. The skin was prepared and festus ped in the usual sterile fashion, and 1% lidocaine was infiltrated from the skin down through the ple ural surface. A 19-gauge catheter-covered needle was then introduced into the pleural space, the cat heter was advanced and the needle was withdrawn, and thereafter pleural fluid was aspirated. The cat heter was then removed and a dressing was applied. COMPARISON: Chest CT 10/17/2023 FINDINGS: Access site: Left hemithorax. Needle: One-Step centesis catheter with introducer needle. Fluid volume and description: 850 cc of claudine pleural fluid Fluid sent for diagnostic testing: No Medications: 1% lidocaine for local anaesthesia. Complications: None; post-procedural chest radiograph is pending to assess for pneumothorax. IMPRESSION: Successful ultrasound-guided thoracentesis. Reviewed by: Aimee Yousif MD on 12/06/2023 11:58 AM PDT Approved by: Aimee Yousif MD on 12/06/2023 11:58 AM PDT Station ID: [id number]
== END 2023-12-05 11:18 | disposition home or self-care (01) ==
LOC: DI 11:17
PROVIDERS: ATTEND Nurse Practitioner Adult Health
DX: C34.90 Malignant neoplasm of unspecified part of unspecified bronchus or lung (principal); C79.49 Secondary malignant neoplasm of other parts of nervous system; J90 Pleural effusion, not elsewhere classified
CPT/HCPCS: 32555

== ENCOUNTER 2023-12-12 08:00 | Outpatient (CLI) | payer MEDICARE | END 2023-12-12 08:01 | disposition home or self-care (01) | LOC: PC 08:00 | PROVIDERS: ATTEND Nurse Practitioner Adult Health | DX: Z51.5 Encounter for palliative care (principal); C7A.8 Other malignant neuroendocrine tumors; C7B.8 Other secondary neuroendocrine tumors; G89.3 Neoplasm related pain (acute) (chronic); J90 Pleural effusion, not elsewhere classified; Z79.891 Long term (current) use of opiate analgesic; Z79.630 Long term (current) use of alkylating agent; Z79.633 Long term (current) use of mitotic inhibitor; Z79.620 Long term (current) use of immunosuppressive biologic; Z87.891 Personal history of nicotine dependence; Z99.81 Dependence on supplemental oxygen; Z79.899 Other long term (current) drug therapy; R06.00 Dyspnea, unspecified; R05.9 Cough, unspecified | CPT/HCPCS: 99215 ==

== ENCOUNTER 2023-12-18 08:00 | Outpatient (CLI) | payer MEDICARE | END 2023-12-18 23:59 | disposition home or self-care (01) | LOC: PC 08:00 | PROVIDERS: ATTEND Nurse Practitioner Adult Health | DX: Z51.5 Encounter for palliative care (principal); C7A.8 Other malignant neuroendocrine tumors; C7B.8 Other secondary neuroendocrine tumors; R06.00 Dyspnea, unspecified; R63.0 Anorexia; F41.8 Other specified anxiety disorders; Z71.89 Other specified counseling; R04.0 Epistaxis; G89.3 Neoplasm related pain (acute) (chronic); Z79.891 Long term (current) use of opiate analgesic; Z92.3 Personal history of irradiation; Z92.241 Personal history of systemic steroid therapy; J90 Pleural effusion, not elsewhere classified; R59.0 Localized enlarged lymph nodes; Z92.21 Personal history of antineoplastic chemotherapy; Z79.899 Other long term (current) drug therapy | CPT/HCPCS: 99350 ==

== ENCOUNTER 2023-12-18 08:00 | Outpatient (CLI) | payer MEDICARE | END 2023-12-18 23:59 | disposition home or self-care (01) | LOC: PC 08:00 | PROVIDERS: ATTEND Nurse Practitioner Adult Health | DX: Z51.5 Encounter for palliative care (principal); C34.12 Malignant neoplasm of upper lobe, left bronchus or lung | CPT/HCPCS: 99426; 99427 ==

== ENCOUNTER 2024-01-03 08:00 | Outpatient (CLI) | payer MEDICARE | END 2024-01-03 23:59 | disposition home or self-care (01) | LOC: PC 08:00 | PROVIDERS: ATTEND Nurse Practitioner Adult Health | DX: Z51.5 Encounter for palliative care (principal); C7A.8 Other malignant neuroendocrine tumors; C7B.8 Other secondary neuroendocrine tumors; F41.9 Anxiety disorder, unspecified; G89.3 Neoplasm related pain (acute) (chronic); R63.0 Anorexia; R06.00 Dyspnea, unspecified; R53.83 Other fatigue; Z71.89 Other specified counseling; Z79.899 Other long term (current) drug therapy; Z92.3 Personal history of irradiation | CPT/HCPCS: 99215 ==

== ENCOUNTER 2024-01-18 08:00 | Outpatient (CLI) | payer MEDICARE | END 2024-01-18 23:59 | disposition home or self-care (01) | LOC: PC 08:00 | PROVIDERS: ATTEND Nurse Practitioner Adult Health | DX: Z51.5 Encounter for palliative care (principal); C34.12 Malignant neoplasm of upper lobe, left bronchus or lung | CPT/HCPCS: 99426; 99427 ==

== ENCOUNTER 2024-01-23 11:30 | Outpatient (CLI) | payer MEDICARE | END 2024-01-23 23:59 | disposition home or self-care (01) | LOC: PC 11:30 | PROVIDERS: ATTEND Nurse Practitioner Adult Health | DX: Z51.5 Encounter for palliative care (principal); C34.90 Malignant neoplasm of unspecified part of unspecified bronchus or lung; C79.31 Secondary malignant neoplasm of brain; R63.0 Anorexia; R06.00 Dyspnea, unspecified; F41.9 Anxiety disorder, unspecified; F32.A Depression, unspecified; R11.0 Nausea; Z68.22 Body mass index [BMI] 22.0-22.9, adult; Z71.89 Other specified counseling | CPT/HCPCS: 99215 ==

== ENCOUNTER 2024-02-13 11:15 | Outpatient (CLI) | payer MEDICARE | END 2024-02-13 23:59 | disposition home or self-care (01) | LOC: PC 11:15 | PROVIDERS: ATTEND Nurse Practitioner Adult Health | DX: Z51.5 Encounter for palliative care (principal); R06.00 Dyspnea, unspecified; C34.90 Malignant neoplasm of unspecified part of unspecified bronchus or lung; F41.8 Other specified anxiety disorders; L29.9 Pruritus, unspecified; Z71.89 Other specified counseling | CPT/HCPCS: 99215 ==

== ENCOUNTER 2024-03-05 08:00 | Outpatient (CLI) | payer MEDICARE | END 2024-03-05 23:59 | disposition home or self-care (01) | LOC: PC 08:00 | PROVIDERS: ATTEND Nurse Practitioner Adult Health | DX: Z51.5 Encounter for palliative care (principal); C34.90 Malignant neoplasm of unspecified part of unspecified bronchus or lung; C79.31 Secondary malignant neoplasm of brain; L29.9 Pruritus, unspecified; F41.8 Other specified anxiety disorders; R51.9 Headache, unspecified; Z71.89 Other specified counseling | CPT/HCPCS: 99215 ==

== ENCOUNTER 2024-03-19 08:00 | Outpatient (CLI) | payer MEDICARE | END 2024-03-19 23:59 | disposition home or self-care (01) | LOC: PC 08:00 | PROVIDERS: ATTEND Nurse Practitioner Adult Health | DX: Z51.5 Encounter for palliative care (principal); C34.12 Malignant neoplasm of upper lobe, left bronchus or lung | CPT/HCPCS: 99426; 99427 ==

== ENCOUNTER 2024-03-28 08:00 | Outpatient (CLI) | payer MEDICARE | END 2024-03-28 23:59 | disposition home or self-care (01) | LOC: PC 08:00 | PROVIDERS: ATTEND Nurse Practitioner Adult Health | DX: Z51.5 Encounter for palliative care (principal); C34.90 Malignant neoplasm of unspecified part of unspecified bronchus or lung; C79.31 Secondary malignant neoplasm of brain; R51.9 Headache, unspecified; Z92.3 Personal history of irradiation; Z86.16 Personal history of COVID-19; Z79.899 Other long term (current) drug therapy; K21.00 Gastro-esophageal reflux disease with esophagitis, without bleeding; K59.03 Drug induced constipation; T45.1X5A Adverse effect of antineoplastic and immunosuppressive drugs, initial encounter; G47.00 Insomnia, unspecified; F41.9 Anxiety disorder, unspecified; R45.4 Irritability and anger; Z71.89 Other specified counseling | CPT/HCPCS: 99215 ==

== ENCOUNTER 2024-04-08 12:38 | Outpatient (CLI) | payer MEDICARE ==
[2024-04-08 13:43] LABS: ALBUMIN 3.5 g/dL (3.2-5.5); ALBUMIN/GLOBULIN RATIO 1.5 (1.0-2.2); BILIRUBIN,TOTAL 0.4 mg/dL (0.2-1.0); CALCIUM 8.3 mg/dL (8.5-10.3); CREATININE 0.7 mg/dL (0.6-1.3); MAGNESIUM 1.8 mg/dL (1.7-2.3); POTASSIUM 4.3 mmol/L (3.5-4.5); TOTAL PROTEIN 5.9 g/dL (6.4-8.9)
== END 2024-04-08 12:39 | disposition home or self-care (01) ==
LOC: LAB 12:38
PROVIDERS: ATTEND Nurse Practitioner Adult Health
DX: C79.31 Secondary malignant neoplasm of brain (principal)
CPT/HCPCS: 36415; 80053; 83735